=== PATIENT | female | born 1955 | race American Indian/Alaskan Native ===

== ENCOUNTER 2017-01-29 14:49 | Inpatient (IN) | payer OTHER ==
[2017-01-29 17:14] LABS: Hematocrit 35.3 % (30.3-42.9); Hemoglobin 10.8 gm/dl (10.1-14.3); Mean Corpuscular HGB Conc 31 % (30-34); Mean Corpuscular Volume 83 fl (79-97); Platelet Count 346 K/mm3 (140-440); Red Blood Count 4.23 M/mm3 (3.65-5.03); Red Cell Distribution Width 17.6 % (13.2-15.2); White Blood Count 16.3 K/mm3 (4.5-11.0)
[2017-01-29 17:19] LABS: Lipase 39 units/L (13-60)
[2017-01-29 17:24] LABS: Albumin 3.3 g/dL (3.9-5); Bilirubin,Total 2.8 mg/dL (0.1-1.2); Calcium 9.6 mg/dL (8.4-10.2); Chloride 96.3 mmol/L (98-107); Potassium 4.3 mmol/L (3.6-5.0); Total Protein 6.5 g/dL (6.3-8.2)
[2017-01-29 17:27] LABS: Mean Corpuscular Hemoglobin 26 pg (28-32)
[2017-01-29 17:46] LABS: INR 1.41 (0.87-1.13)
[2017-01-29 17:47] LABS: Partial Thromboplastin Time 33.5 Sec. (24.2-36.6)
[2017-01-29 18:22] LABS: Bilirubin,Urine NEG (Negative); Blood,Urine NEG (Negative); Ketones,Urine NEG (Negative); Leukocyte Esterase,Urine NEG (Negative); Nitrite,Urine NEG (Negative); Protein,Urine <15 mg/dL mg/dL (Negative); RBC,Urine < 1.0 /HPF (0.0-6.0); Urobilinogen,Urine < 2.0 mg/dL (<2.0)
[2017-01-29 18:40] LABS: Blastocytes % (Manual) 0 %
[2017-01-29 18:41] LABS: Anisocytosis 1+; Basophils % (Manual) 0 % (0.0-1.8); Elliptocytes 1+; Eosinophils % (Manual) 0 % (0.0-4.3); Hypochromasia 1+; Poikilocytosis 1+
[2017-01-29 18:42] LABS: Platelet Estimate Consistent w Auto; Polychromasia Few; Spherocytes Few; Target Cells Few
[2017-01-29 18:51] LABS: Diff Status Complete
[2017-01-29] MEDS ORDERED: NACL 0.9% 1000 ML 2,000 ML IV ONE (19:20)
--- NOTE | 2017-01-29 19:24 | Emergency Department Report ---
ED General Adult HPI - General Chief complaint: Abdominal Pain Stated complaint: ABDOMINAL PAIN,NOT EATING WEAK Time Seen by Provider: 01/29/17 19:08 Source: patient, family, RN notes reviewed Mode of arrival: Ambulatory Limitations: Altered Mental Status, Physical Limitation - History of Present Illness Initial comments: This is a 61-year-old female. The patient is previously unknown to this provider. She does not have a local primary care doctor. She is brought to the hospital by her family member, Mr. Titus Coronado; [phone] The patient is brought to the hospital for weakness, abdominal cramping and generalized malaise, back pain, decreased oral intake, "not acting like herself. " The symptoms have been going on for 1 month. They are intermittent. They do not have exacerbating or relieving factors. Patient admits to abdominal cramping and chest cramping. She cannot further describe this. She denies headache, neck pain, shortness of breath, urinary symptoms, diarrhea. -: Gradual Location: back, abdomen Severity scale (0 -10): 4 Consistency: intermittent Improves with: none Worsens with: none Associated Symptoms: confusion, loss of appetite, malaise, weakness - Related Data Allergies Allergy/AdvReac Type Severity Reaction Status Date / Time Penicillins Allergy Unknown Verified 01/29/17 16:11 ED Review of Systems ROS: Stated complaint: ABDOMINAL PAIN,NOT EATING WEAK Other details as noted in HPI Constitutional: fever Eyes: denies: eye discharge ENT: denies: epistaxis Respiratory: denies: cough Cardiovascular: denies: chest pain Gastrointestinal: abdominal pain Genitourinary: denies: dysuria Skin: as per HPI Neurological: weakness, confusion Psychiatric: as per HPI ED Past Medical Hx - Past Medical History Hx Hypertension: Yes Additional medical history: 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 Absent: nystagmus - ENT ENT exam: Present: normal exam, normal orophraynx, mucous membranes moist, normal external ear exam - Neck Neck exam: Present: normal inspection, full ROM. Absent: tenderness, meningismus - Respiratory Respiratory exam: Present: normal lung sounds bilaterally. Absent: respiratory distress, wheezes, rales, rhonchi, stridor, chest wall tenderness - Cardiovascular Cardiovascular Exam: Present: normal rhythm, tachycardia, normal heart sounds. Absent: systolic murmur, diastolic murmur, rubs, gallop - GI/Abdominal GI/Abdominal exam: Present: soft, organomegaly (hepatomegaly), other (left lower quadrant colostomy is noted. No redness, pus or streaking). Absent: distended, tenderness, guarding, rebound, rigid, pulsatile mass - Extremities Exam Extremities exam: Present: normal inspection, full ROM, normal capillary refill. Absent: pedal edema, calf tenderness - Back Exam Back exam: Present: normal inspection, full ROM. Absent: tenderness, CVA tenderness (R), paraspinal tenderness, vertebral tenderness - Neurological Exam Neurological exam: Present: alert (alert to name and location. Patient cannot multiply 1010.), other (Extraocular movements intact. Tongue midline. No facial droop. Facial sensation intact to light touch in the V1, V2, V3 distribution bilaterally. 5 and 5 strength in 4 extremities.. Sensation is intact to light touch in 4 extremities.). Absent: motor sensory deficit - Psychiatric Psychiatric exam: Present: normal affect, normal mood - Skin Skin exam: Present: warm, dry, intact, normal color. Absent: rash ED Course Vital Signs 01/29/17 01/29/17 01/29/17 16:01 18:21 20:19 Temperature 98.6 F 98.2 F 98.9 F Pulse Rate 101 H 97 H Respiratory 18 28 H Rate Blood Pressure 146/107 Blood Pressure 141/103 [Right] O2 Sat by Pulse 100 98 Oximetry - Reevaluation(s) Reevaluation #1: 01/29/17 20:13 Differential diagnosis, including but not limited to: Viremia, bacteremia, hepatorenal syndrome, intra-abdominal infection, pneumonia Assessment and plan: 61-year-old female with gradual cognitive and physical decline over a month as per her nephew. Rectal temperature is pending, patient tachycardic with leukocytosis, has renal insufficiency, transaminitis and lactic acidosis. The patient's PEYTON does not indicate that she is nauseous. She denied consuming alcohol to me. Patient will be treated empirically with IV fluids, multivitamin/banana bag with thiamine. Noncontrast CT scan of the brain is pending. Noncontrast CT scan of the abdomen and pelvis is pending. Given the patient's symptoms have been going on for 1 month, given that she appears to be moderately dehydrated, I think bacteremia is unlikely. However if she is found to have a fever or to be hypothermic, she will be covered with empiric antibiotics. 01/29/17 20:14 01/29/17 20:15 Reevaluation #2: 01/29/17 20:16 Elevated proBNP is appreciated, however the patient is not hypoxic, does not have crackles or rales, therefore clinically do not think the patient is in acute congestive heart failure. I believe that she will benefit from IV fluids and not from fluid restriction. Reevaluation #3: 01/29/17 21:[address] scan of the brain negative for acute findings. CT scan of the pelvis is pending. Reevaluation #4: 01/29/17 22:39 CT scan report is reviewed. Polycystic kidney disease noted, ascites noted, no obvious infectious etiology is noted. Noncontrast CT scan of the brain is negative. Given poor functional status, acute renal insufficiency, generalized weakness, ascites had a symptomatic but nontender, patient to be admitted for oncologic workup, IV fluids, and hydration. Case is presented to the Hospital physician, Dr. Hernandez, he accepts the patient to the medical service. Given persistent tachycardia, leukocytosis , elevated lactic acid level, renal insufficiency, patient will be covered empirically with Levaquin. 01/29/17 22:40 ED Medical Decision Making - Lab Data Result diagrams: 01/29/17 16:12 01/29/17 16:12 Vital Signs 01/29/17 01/29/17 16:01 18:21 Temperature 98.6 F 98.2 F Pulse Rate 101 H 97 H Respiratory 18 28 H Rate Blood Pressure 146/107 Blood Pressure 141/103 [Right] O2 Sat by Pulse 100 98 Oximetry Lab Results 01/29/17 01/29/17 01/29/17 Range/Units 16:12 16:12 16:18 WBC 16.3 H (4.5-11.0) K/mm3 RBC 4.23 (3.65-5.03) M/mm3 Hgb 10.8 (10.1-14.3) gm/dl Hct 35.3 (30.3-42.9) % MCV 83 (79-97) fl MCH 26 L (28-32) pg MCHC 31 (30-34) % RDW 17.6 H (13.2-15.2) % Plt Count 346 (140-440) K/mm3 Add Manual Diff Complete Total Counted 100 Seg Neutrophils % Senior Research Scientist Seg Neuts % (Manual) 90.0 H (40.0-70.0) % Band Neutrophils % 2.0 % Lymphocytes % (Manual) 6.0 L (13.4-35.0) % Reactive Lymphs % (Man) 0 % Monocytes % (Manual) 2.0 (0.0-7.3) % Eosinophils % (Manual) 0 (0.0-4.3) % Basophils % (Manual) 0 (0.0-1.8) % Metamyelocytes % 0 % Myelocytes % 0 % Promyelocytes % 0 % Blast Cells % 0 % Nucleated RBC % Not Reportable Seg Neutrophils # Man 14.7 H (1.8-7.7) K/mm3 Band Neutrophils # 0.3 K/mm3 Lymphocytes # (Manual) 1.0 L (1.2-5.4) K/mm3 Abs React Lymphs (Man) 0.0 K/mm3 Monocytes # (Manual) 0.3 (0.0-0.8) K/mm3 Eosinophils # (Manual) 0.0 (0.0-0.4) K/mm3 Basophils # (Manual) 0.0 (0.0-0.1) K/mm3 Metamyelocytes # 0.0 K/mm3 Myelocytes # 0.0 K/mm3 Promyelocytes # 0.0 K/mm3 Blast Cells # 0.0 K/mm3 WBC Morphology Not Reportable Hypersegmented Neuts Not Reportable Hyposegmented Neuts Not Reportable Hypogranular Neuts Not Reportable Smudge Cells Not Reportable Toxic Granulation Not Reportable Toxic Vacuolation Not Reportable Dohle Bodies Not Reportable Pelger-Huet Anomaly Not Reportable Иван Rods Not Reportable Platelet Estimate Consistent w auto Clumped Platelets Not Reportable Plt Clumps, EDTA Not Reportable Large Platelets Not Reportable Giant Platelets Not Reportable Platelet Satelliting Not Reportable Plt Morphology Comment Not Reportable RBC Morphology Not Reportable Dimorphic RBCs Not Reportable Polychromasia Few Hypochromasia 1+ Poikilocytosis 1+ Anisocytosis 1+ Microcytosis Not Reportable Macrocytosis Not Reportable Spherocytes Few Pappenheimer Bodies Not Reportable Sickle Cells Not Reportable Target Cells Few Tear Drop Cells Not Reportable Ovalocytes Not Reportable Helmet Cells Not Reportable [place] Bodies Not Reportable [place] Rings Not Reportable Matthews Cells Not Reportable Bite Cells Not Reportable Crenated Cell Not Reportable Elliptocytes 1+ Acanthocytes (Spur) Not Reportable Rouleaux Not Reportable Hemoglobin C Crystals Not Reportable Schistocytes Not Reportable Malaria parasites Not Reportable Sandro Bodies Not Reportable Hem Pathologist Commnt No PT 18.0 H (12.2-14.9) Sec. INR 1.41 H (0.87-1.13) APTT 33.5 (24.2-36.6) Sec. Sodium 137 (137-145) mmol/L Potassium 4.3 (3.6-5.0) mmol/L Chloride 96.3 L (98-107) mmol/L Carbon Dioxide 20 L (22-30) mmol/L Anion Gap 25 mmol/L BUN 24 H (7-17) mg/dL Creatinine 1.4 H (0.7-1.2) mg/dL Estimated GFR 46 ml/min BUN/Creatinine Ratio 17 % Glucose 97 (65-100) mg/dL Lactic Acid (0.7-2.0) mmol/L Calcium 9.6 (8.4-10.2) mg/dL Total Bilirubin 2.80 H (0.1-1.2) mg/dL AST 500 H (5-40) units/L ALT 158 H (7-56) units/L Alkaline Phosphatase 308 H (35-129) units/L Ammonia (25-60) umol/L NT-Pro-B Natriuret Pep (0-900) pg/mL Total Protein 6.5 (6.3-8.2) g/dL Albumin 3.3 L (3.9-5) g/dL Albumin/Globulin Ratio 1.0 % Lipase (13-60) units/L Urine Color (Yellow) Urine Turbidity (Clear) Urine pH (5.0-7.0) Ur Specific [employer] (1.003-1.030) Urine Protein (Negative) mg/dL Urine Glucose (UA) (Negative) mg/dL Urine Ketones (Negative) mg/dL Urine Blood (Negative) Urine Nitrite (Negative) Urine Bilirubin (Negative) Urine Urobilinogen (<2.0) mg/dL Ur Leukocyte Esterase (Negative) Urine WBC (Auto) (0.0-6.0) /HPF Urine RBC (Auto) (0.0-6.0) /HPF Blood Type Antibody Screen 01/29/17 01/29/17 01/29/17 Range/Units 16:19 16:35 16:45 WBC (4.5-11.0) K/mm3 RBC (3.65-5.03) M/mm3 Hgb (10.1-14.3) gm/dl Hct (30.3-42.9) % MCV (79-97) fl MCH (28-32) pg MCHC (30-34) % RDW (13.2-15.2) % Plt Count (140-440) K/mm3 Add Manual Diff Total Counted Seg Neutrophils % Seg Neuts % (Manual) (40.0-70.0) % Band Neutrophils % % Lymphocytes % (Manual) (13.4-35.0) % Reactive Lymphs % (Man) % Monocytes % (Manual) (0.0-7.3) % Eosinophils % (Manual) (0.0-4.3) % Basophils % (Manual) (0.0-1.8) % Metamyelocytes % % Myelocytes % % Promyelocytes % % Blast Cells % % Nucleated RBC % Seg Neutrophils # Man (1.8-7.7) K/mm3 Band Neutrophils # K/mm3 Lymphocytes # (Manual) (1.2-5.4) K/mm3 Abs React Lymphs (Man) K/mm3 Monocytes # (Manual) (0.0-0.8) K/mm3 Eosinophils # (Manual) (0.0-0.4) K/mm3 Basophils # (Manual) (0.0-0.1) K/mm3 Metamyelocytes # K/mm3 Myelocytes # K/mm3 Promyelocytes # K/mm3 Blast Cells # K/mm3 WBC Morphology Hypersegmented Neuts Hyposegmented Neuts Hypogranular Neuts Smudge Cells Toxic Granulation Toxic Vacuolation Dohle Bodies Pelger-Huet Anomaly Иван Rods Platelet Estimate Clumped Platelets Plt Clumps, EDTA Large Platelets Giant Platelets Platelet Satelliting Plt Morphology Comment RBC Morphology Dimorphic RBCs Polychromasia Hypochromasia Poikilocytosis Anisocytosis Microcytosis Macrocytosis Spherocytes Pappenheimer Bodies Sickle Cells Target Cells Tear Drop Cells Ovalocytes Helmet Cells [place] Bodies [place] Rings Matthews Cells Bite Cells Crenated Cell Elliptocytes Acanthocytes (Spur) Rouleaux Hemoglobin C Crystals Schistocytes Malaria parasites Sandro Bodies Hem Pathologist Commnt PT (12.2-14.9) Sec. INR (0.87-1.13) APTT (24.2-36.6) Sec. Sodium (137-145) mmol/L Potassium (3.6-5.0) mmol/L Chloride (98-107) mmol/L Carbon Dioxide (22-30) mmol/L Anion Gap mmol/L BUN (7-17) mg/dL Creatinine (0.7-1.2) mg/dL Estimated GFR ml/min BUN/Creatinine Ratio % Glucose (65-100) mg/dL Lactic Acid 3.10 H* (0.7-2.0) mmol/L Calcium (8.4-10.2) mg/dL Total Bilirubin (0.1-1.2) mg/dL AST (5-40) units/L ALT (7-56) units/L Alkaline Phosphatase (35-129) units/L Ammonia (25-60) umol/L NT-Pro-B Natriuret Pep 1747 H (0-900) pg/mL Total Protein (6.3-8.2) g/dL Albumin (3.9-5) g/dL Albumin/Globulin Ratio % Lipase 39 (13-60) units/L Urine Color (Yellow) Urine Turbidity (Clear) Urine pH (5.0-7.0) Ur Specific [employer] (1.003-1.030) Urine Protein (Negative) mg/dL Urine Glucose (UA) (Negative) mg/dL Urine Ketones (Negative) mg/dL Urine Blood (Negative) Urine Nitrite (Negative) Urine Bilirubin (Negative) Urine Urobilinogen (<2.0) mg/dL Ur Leukocyte Esterase (Negative) Urine WBC (Auto) (0.0-6.0) /HPF Urine RBC (Auto) (0.0-6.0) /HPF Blood Type B POSITIVE Antibody Screen Negative 01/29/17 01/29/17 01/29/17 Range/Units 16:45 17:44 19:28 WBC (4.5-11.0) K/mm3 RBC (3.65-5.03) M/mm3 Hgb (10.1-14.3) gm/dl Hct (30.3-42.9) % MCV (79-97) fl MCH (28-32) pg MCHC (30-34) % RDW (13.2-15.2) % Plt Count (140-440) K/mm3 Add Manual Diff Total Counted Seg Neutrophils % Seg Neuts % (Manual) (40.0-70.0) % Band Neutrophils % % Lymphocytes % (Manual) (13.4-35.0) % Reactive Lymphs % (Man) % Monocytes % (Manual) (0.0-7.3) % Eosinophils % (Manual) (0.0-4.3) % Basophils % (Manual) (0.0-1.8) % Metamyelocytes % % Myelocytes % % Promyelocytes % % Blast Cells % % Nucleated RBC % Seg Neutrophils # Man (1.8-7.7) K/mm3 Band Neutrophils # K/mm3 Lymphocytes # (Manual) (1.2-5.4) K/mm3 Abs React Lymphs (Man) K/mm3 Monocytes # (Manual) (0.0-0.8) K/mm3 Eosinophils # (Manual) (0.0-0.4) K/mm3 Basophils # (Manual) (0.0-0.1) K/mm3 Metamyelocytes # K/mm3 Myelocytes # K/mm3 Promyelocytes # K/mm3 Blast Cells # K/mm3 WBC Morphology Hypersegmented Neuts Hyposegmented Neuts Hypogranular Neuts Smudge Cells Toxic Granulation Toxic Vacuolation Dohle Bodies Pelger-Huet Anomaly Иван Rods Platelet Estimate Clumped Platelets Plt Clumps, EDTA Large Platelets Giant Platelets Platelet Satelliting Plt Morphology Comment RBC Morphology Dimorphic RBCs Polychromasia Hypochromasia Poikilocytosis Anisocytosis Microcytosis Macrocytosis Spherocytes Pappenheimer Bodies Sickle Cells Target Cells Tear Drop Cells Ovalocytes Helmet Cells [place] Bodies [place] Rings Matthews Cells Bite Cells Crenated Cell Elliptocytes Acanthocytes (Spur) Rouleaux Hemoglobin C Crystals Schistocytes Malaria parasites Sandro Bodies Hem Pathologist Commnt PT (12.2-14.9) Sec. INR (0.87-1.13) APTT (24.2-36.6) Sec. Sodium (137-145) mmol/L Potassium (3.6-5.0) mmol/L Chloride (98-107) mmol/L Carbon Dioxide (22-30) mmol/L Anion Gap mmol/L BUN (7-17) mg/dL Creatinine (0.7-1.2) mg/dL Estimated GFR ml/min BUN/Creatinine Ratio % Glucose (65-100) mg/dL Lactic Acid (0.7-2.0) mmol/L Calcium (8.4-10.2) mg/dL Total Bilirubin (0.1-1.2) mg/dL AST (5-40) units/L ALT (7-56) units/L Alkaline Phosphatase (35-129) units/L Ammonia 53.0 46.0 (25-60) umol/L NT-Pro-B Natriuret Pep (0-900) pg/mL Total Protein (6.3-8.2) g/dL Albumin (3.9-5) g/dL Albumin/Globulin Ratio % Lipase (13-60) units/L Urine Color Yellow (Yellow) Urine Turbidity Clear (Clear) Urine pH 5.0 (5.0-7.0) Ur Specific [employer] 1.009 (1.003-1.030) Urine Protein <15 mg/dl (Negative) mg/dL Urine Glucose (UA) Neg (Negative) mg/dL Urine Ketones Neg (Negative) mg/dL Urine Blood Neg (Negative) Urine Nitrite Neg (Negative) Urine Bilirubin Neg (Negative) Urine Urobilinogen < 2.0 (<2.0) mg/dL Ur Leukocyte Esterase Neg (Negative) Urine WBC (Auto) 0.0 (0.0-6.0) /HPF Urine RBC (Auto) < 1.0 (0.0-6.0) /HPF Blood Type Antibody Screen 01/29/17 Range/Units 19:28 WBC (4.5-11.0) K/mm3 RBC (3.65-5.03) M/mm3 Hgb (10.1-14.3) gm/dl Hct (30.3-42.9) % MCV (79-97) fl MCH (28-32) pg MCHC (30-34) % RDW (13.2-15.2) % Plt Count (140-440) K/mm3 Add Manual Diff Total Counted Seg Neutrophils % Seg Neuts % (Manual) (40.0-70.0) % Band Neutrophils % % Lymphocytes % (Manual) (13.4-35.0) % Reactive Lymphs % (Man) % Monocytes % (Manual) (0.0-7.3) % Eosinophils % (Manual) (0.0-4.3) % Basophils % (Manual) (0.0-1.8) % Metamyelocytes % % Myelocytes % % Promyelocytes % % Blast Cells % % Nucleated RBC % Seg Neutrophils # Man (1.8-7.7) K/mm3 Band Neutrophils # K/mm3 Lymphocytes # (Manual) (1.2-5.4) K/mm3 Abs React Lymphs (Man) K/mm3 Monocytes # (Manual) (0.0-0.8) K/mm3 Eosinophils # (Manual) (0.0-0.4) K/mm3 Basophils # (Manual) (0.0-0.1) K/mm3 Metamyelocytes # K/mm3 Myelocytes # K/mm3 Promyelocytes # K/mm3 Blast Cells # K/mm3 WBC Morphology Hypersegmented Neuts Hyposegmented Neuts Hypogranular Neuts Smudge Cells Toxic Granulation Toxic Vacuolation Dohle Bodies Pelger-Huet Anomaly Иван Rods Platelet Estimate Clumped Platelets Plt Clumps, EDTA Large Platelets Giant Platelets Platelet Satelliting Plt Morphology Comment RBC Morphology Dimorphic RBCs Polychromasia Hypochromasia Poikilocytosis Anisocytosis Microcytosis Macrocytosis Spherocytes Pappenheimer Bodies Sickle Cells Target Cells Tear Drop Cells Ovalocytes Helmet Cells [place] Bodies [place] Rings Matthews Cells Bite Cells Crenated Cell Elliptocytes Acanthocytes (Spur) Rouleaux Hemoglobin C Crystals Schistocytes Malaria parasites Sandro Bodies Hem Pathologist Commnt PT (12.2-14.9) Sec. INR (0.87-1.13) APTT (24.2-36.6) Sec. Sodium (137-145) mmol/L Potassium (3.6-5.0) mmol/L Chloride (98-107) mmol/L Carbon Dioxide (22-30) mmol/L Anion Gap mmol/L BUN (7-17) mg/dL Creatinine (0.7-1.2) mg/dL Estimated GFR ml/min BUN/Creatinine Ratio % Glucose (65-100) mg/dL Lactic Acid 3.60 H* (0.7-2.0) mmol/L Calcium (8.4-10.2) mg/dL Total Bilirubin (0.1-1.2) mg/dL AST (5-40) units/L ALT (7-56) units/L Alkaline Phosphatase (35-129) units/L Ammonia (25-60) umol/L NT-Pro-B Natriuret Pep (0-900) pg/mL Total Protein (6.3-8.2) g/dL Albumin (3.9-5) g/dL Albumin/Globulin Ratio % Lipase (13-60) units/L Urine Color (Yellow) Urine Turbidity (Clear) Urine pH (5.0-7.0) Ur Specific [employer] (1.003-1.030) Urine Protein (Negative) mg/dL Urine Glucose (UA) (Negative) mg/dL Urine Ketones (Negative) mg/dL Urine Blood (Negative) Urine Nitrite (Negative) Urine Bilirubin (Negative) Urine Urobilinogen (<2.0) mg/dL Ur Leukocyte Esterase (Negative) Urine WBC (Auto) (0.0-6.0) /HPF Urine RBC (Auto) (0.0-6.0) /HPF Blood Type Antibody Screen - EKG Data -: EKG Interpreted by Me EKG shows normal: sinus rhythm - EKG Data 01/29/17 20:15 Sinus tachycardia, 101 bpm, high left ventricular voltage, QTC prolonged, abnormal EKG, not morphologically consistent with STEMI - Radiology Data Radiology results: pending, report reviewed, image reviewed Critical care attestation.: If time is entered above; I have spent that time in minutes in the direct care of this critically ill patient, excluding procedure time. ED Disposition Clinical Impression: SIRS (systemic inflammatory response syndrome), Renal insufficiency, Transaminitis Disposition: -09 OP ADMIT IP TO THIS HOSP Is pt being admited?: Yes Condition: Good
[2017-01-29] MEDS ORDERED: VITAMIN B-1 100 MG, FOLVITE 1 MG, INFUVITE 10 ML in NACL 0.9% 1000 ML 1,000 ML IV ONE (21:15)
--- NOTE | 2017-01-29 21:42 | Cat Scan Report ---
FINAL REPORT EXAM: CT HEAD/BRAIN WO CON HISTORY: ams TECHNIQUE: CT head without contrast PRIORS: None. FINDINGS: There is focal remote lacunar infarct right caudate head. No acute intra or extra-axial hemorrhage identified. No evidence for midline shift or mass effect. Ventricles and sulci are within normal limits. No acute parenchymal abnormalities are identified. There is patchy hypodensity within the supratentorial white matter consistent with chronic small vessel ischemic change. IMPRESSION: Chronic ischemic changes No acute abnormality identified.
--- NOTE | 2017-01-29 22:22 | Cat Scan Report ---
FINAL REPORT PROCEDURE: CT ABDOMEN PELVIS WO CON TECHNIQUE: Computerized axial tomography of the abdomen and pelvis was performed without intravenous contrast. This study is performed without intravascular contrast material and its sensitivity for abdominal and pelvic pathology, including neoplasms, inflammation, abscess, free fluid, thrombosis, arterial dissection and infarction, is reduced compared with a contrast enhanced study. HISTORY: abd pain COMPARISON: No prior studies are available for comparison. FINDINGS: Lower Lung quinteros: Small to moderate right pleural effusion present with mild adjacent atelectasis. Minimal left pleural effusion is present. Upper Abdomen: There are too numerous to count cystic lesions visualized throughout the liver and both kidneys. There also several calcifications seen in the kidneys. No hydronephrosis is visualized. There are nonspecific small hyperdense nodules visualized in both kidneys as well. The cystic changes in the liver measure up to 4.9 centimeters greatest diameter. In addition to the cystic areas there are numerous intermediate dense oval and round nodules scattered throughout the right and left lobes of the liver measuring up to 3.2 centimeters. In addition to cysts I cannot exclude numerous intermediate dense masses scattered throughout the liver. There is moderate amount of ascites present throughout the abdomen and pelvis. The adrenal glands do not appear to be enlarged. The spleen is unremarkable. The pancreas showed no focal abnormality. Retroperitoneum: Atherosclerotic changes are seen in the abdominal aorta. No aneurysm is visualized. Nonspecific subcentimeter lymph nodes are seen in the retroperitoneum. No pathologically enlarged lymph nodes are identified. Bowel: No evidence of bowel obstruction or free intraperitoneal gas. There is an ostomy visualized in the left upper quadrant. Loop of bowel, adipose tissue and fluid are herniated into the ostomy site. I do not see changes to suggest bowel obstruction. Reproductive organs: Uterus and adnexa are unremarkable. There is mild thoracolumbar scoliosis present convex to the right. No acute bony abnormalities are seen. IMPRESSION: There is evidence of polycystic kidney disease with additional hepatic involvement. In addition to cystic changes seen in the liver there appear to be numerous intermediate dense nodules present within the liver parenchyma. I cannot exclude metastatic disease within the liver. Multiple nonobstructing renal calculi are visualized. There are also hyperdense cysts or nodules present within the kidneys. These are nonspecific. These may represent hemorrhagic cyst. I cannot exclude solid nodules.. There is an ostomy visualized in the left upper quadrant containing a portion of a loop of bowel, some adipose tissue and ascites. Small to moderate size right pleural effusion, minimal left effusion and moderate ascites is visualized.
[2017-01-29] MEDS ORDERED: LEVAQUIN 750MG/150ML 750 MG/150 ML BAG IV ONE (22:39)
--- NOTE | 2017-01-29 23:15 | History and Physical Report ---
History of Present Illness Date of examination: 01/29/17 Chief complaint: Decreased oral intake History of present illness: 61-year-old -Ind[place] female with past medical history significant for hypertension, polycystic kidney disease, dementia, liver disease, renal failure , status post colostomy was brought by her niece for complaints of not eating and drinking well, back pain, no specific abdominal pain that has been going on for the last 1 month. Patient is poor historian due to dementia. But she said her abdomen hurting. Colostomy was done a year ago and her niece believes is due to some distal obstruction. Patient has been heavy drinker years ago but sober for the last few years. Patient didn't follow-up with PCP. REVIEW OF SYSTEMS: GENERAL: no weight change, no fatigue, no fever HEAD: no head ache EYES: no blurry vision, no acute visual loss EARS: no hearing loss, no discharge, no earache NOSE: no stuffiness, no sneezing, no discharge MOUTH, THROAT AND NECK: no bleeding gums, no sore throat, no swollen neck CARDIAC: no palpitations, no dyspnea on exertion, no orthopnea, no PND, no edema , no chest pain RESPIRATORY: no shortness of breath, no wheeze, no cough, no sputum, no hemoptysis, no asthma GI: + decreased appetite, no nausea, no vomiting, no dysphagia, no diarrhea, no constipation, + abdominal pain URINARY: no change in frequency, no urgency, no polyuria, no hematuria, no incontinence MUSCULOSKELETAL: no muscle weakness, no pain, no joint stiffness NEUROLOGIC: no loss of sensation/numbness, no tingling, no tremors, no weakness/ paralysis HEMATOLOGIC: no anemia, no easy bruising SKIN: no rashes ENDOCRINE: no heat/cold intolerance, no polyuria, no polydipsia, no thyroid problems, no diabetes PSYCHIATRIC: no anxiety, no depression, no suicidal ideations Past History Past Medical History: hypertension, renal failure, other (polycystic kidney disease, dementia) Past Surgical History: bowel surgery Social history: full code. denies: smoking, alcohol abuse (quit drinking for the last few years, but was heavy drinker previously), prescription drug abuse, IV drug use Family history: no significant family history Medications and Allergies Allergies Allergy/AdvReac Type Severity Reaction Status Date / Time Penicillins Allergy Unknown Verified 01/29/17 16:11 Active Meds: Active Medications Thiamine HCl 100 mg/ Folic Acid 1 mg/ Multivitamins/Minerals 10 ml/ Sodium Chloride 1,011.2 mls @ 250 mls/hr IV ONCE.ED ONE Stop: 01/30/17 01:17 Last Admin: 01/29/17 21:21 Dose: 250 mls/hr Levofloxacin/Dextrose (Levaquin 750mg/150ml) 750 mg in 150 mls @ 100 mls/hr IV ONCE ONE Stop: 01/30/17 00:08 Last Admin: 01/29/17 22:53 Dose: 100 mls/hr Exam - Physical Exam Narrative exam: Not in cardiopulmonary distress. The patient appeared well nourished and normally developed. Vital signs as documented. Head exam is unremarkable. No scleral icterus . Neck is without jugular venous distension, thyromegaly, or carotid bruits. Lungs are clear to auscultation. Cardiac exam reveals regular rate and Rhythm. First and second heart sounds normal. No murmurs, rubs or gallops. Abdominal significant for colostomy. Extremities are nonedematous and both femoral and pedal pulses are normal. 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 No focal weakness. - Constitutional Vitals: Temp Pulse Resp BP Pulse Ox 98.9 F 97 H 28 H 141/103 98 01/29/17 20:19 01/29/17 18:21 01/29/17 18:21 01/29/17 18:21 01/29/17 18:21 Results - Labs CBC & Chem 7: 01/29/17 16:12 01/29/17 16:12 Labs: Laboratory Last Values WBC 16.3 K/mm3 (4.5-11.0) H 01/29/17 16:12 RBC 4.23 M/mm3 (3.65-5.03) 01/29/17 16:12 Hgb 10.8 gm/dl (10.1-14.3) 01/29/17 16:12 Hct 35.3 % (30.3-42.9) 01/29/17 16:12 MCV 83 fl (79-97) 01/29/17 16:12 MCH 26 pg (28-32) L 01/29/17 16:12 MCHC 31 % (30-34) 01/29/17 16:12 RDW 17.6 % (13.2-15.2) H 01/29/17 16:12 Plt Count 346 K/mm3 (140-440) 01/29/17 16:12 Add Manual Diff Complete 01/29/17 16:12 Total Counted 100 01/29/17 16:12 Seg Neutrophils % Equipment Mechanic 01/29/17 16:12 Seg Neuts % (Manual) 90.0 % (40.0-70.0) H 01/29/17 16:12 Band Neutrophils % 2.0 % 01/29/17 16:12 Lymphocytes % (Manual) 6.0 % (13.4-35.0) L 01/29/17 16:12 Reactive Lymphs % (Man) 0 % 01/29/17 16:12 Monocytes % (Manual) 2.0 % (0.0-7.3) 01/29/17 16:12 Eosinophils % (Manual) 0 % (0.0-4.3) 01/29/17 16:12 Basophils % (Manual) 0 % (0.0-1.8) 01/29/17 16:12 Metamyelocytes % 0 % 01/29/17 16:12 Myelocytes % 0 % 01/29/17 16:12 Promyelocytes % 0 % 01/29/17 16:12 Blast Cells % 0 % 01/29/17 16:12 Nucleated RBC % Not Reportable 01/29/17 16:12 Seg Neutrophils # Man 14.7 K/mm3 (1.8-7.7) H 01/29/17 16:12 Band Neutrophils # 0.3 K/mm3 01/29/17 16:12 Lymphocytes # (Manual) 1.0 K/mm3 (1.2-5.4) L 01/29/17 16:12 Abs React Lymphs (Man) 0.0 K/mm3 01/29/17 16:12 Monocytes # (Manual) 0.3 K/mm3 (0.0-0.8) 01/29/17 16:12 Eosinophils # (Manual) 0.0 K/mm3 (0.0-0.4) 01/29/17 16:12 Basophils # (Manual) 0.0 K/mm3 (0.0-0.1) 01/29/17 16:12 Metamyelocytes # 0.0 K/mm3 01/29/17 16:12 Myelocytes # 0.0 K/mm3 01/29/17 16:12 Promyelocytes # 0.0 K/mm3 01/29/17 16:12 Blast Cells # 0.0 K/mm3 01/29/17 16:12 WBC Morphology Not Reportable 01/29/17 16:12 Hypersegmented Neuts Not Reportable 01/29/17 16:12 Hyposegmented Neuts Not Reportable 01/29/17 16:12 Hypogranular Neuts Not Reportable 01/29/17 16:12 Smudge Cells Not Reportable 01/29/17 16:12 Toxic Granulation Not Reportable 01/29/17 16:12 Toxic Vacuolation Not Reportable 01/29/17 16:12 Dohle Bodies Not Reportable 01/29/17 16:12 Pelger-Huet Anomaly Not Reportable 01/29/17 16:12 Иван Rods Not Reportable 01/29/17 16:12 Platelet Estimate Consistent w auto 01/29/17 16:12 Clumped Platelets Not Reportable 01/29/17 16:12 Plt Clumps, EDTA Not Reportable 01/29/17 16:12 Large Platelets Not Reportable 01/29/17 16:12 Giant Platelets Not Reportable 01/29/17 16:12 Platelet Satelliting Not Reportable 01/29/17 16:12 Plt Morphology Comment Not Reportable 01/29/17 16:12 RBC Morphology Not Reportable 01/29/17 16:12 Dimorphic RBCs Not Reportable 01/29/17 16:12 Polychromasia Few 01/29/17 16:12 Hypochromasia 1+ 01/29/17 16:12 Poikilocytosis 1+ 01/29/17 16:12 Anisocytosis 1+ 01/29/17 16:12 Microcytosis Not Reportable 01/29/17 16:12 Macrocytosis Not Reportable 01/29/17 16:12 Spherocytes Few 01/29/17 16:12 Pappenheimer Bodies Not Reportable 01/29/17 16:12 Sickle Cells Not Reportable 01/29/17 16:12 Target Cells Few 01/29/17 16:12 Tear Drop Cells Not Reportable 01/29/17 16:12 Ovalocytes Not Reportable 01/29/17 16:12 Helmet Cells Not Reportable 01/29/17 16:12 Traylor-Jeff Bodies Not Reportable 01/29/17 16:12 [place] Rings Not Reportable 01/29/17 16:12 Herlong Cells Not Reportable 01/29/17 16:12 Bite Cells Not Reportable 01/29/17 16:12 Crenated Cell Not Reportable 01/29/17 16:12 Elliptocytes 1+ 01/29/17 16:12 Acanthocytes (Spur) Not Reportable 01/29/17 16:12 Rouleaux Not Reportable 01/29/17 16:12 Hemoglobin C Crystals Not Reportable 01/29/17 16:12 Schistocytes Not Reportable 01/29/17 16:12 Malaria parasites Not Reportable 01/29/17 16:12 Sandro Bodies Not Reportable 01/29/17 16:12 Hem Pathologist Commnt No 01/29/17 16:12 PT 18.0 Sec. (12.2-14.9) H 01/29/17 16:18 INR 1.41 (0.87-1.13) H 01/29/17 16:18 APTT 33.5 Sec. (24.2-36.6) 01/29/17 16:18 Sodium 137 mmol/L (137-145) 01/29/17 16:12 Potassium 4.3 mmol/L (3.6-5.0) 01/29/17 16:12 Chloride 96.3 mmol/L (98-107) L 01/29/17 16:12 Carbon Dioxide 20 mmol/L (22-30) L 01/29/17 16:12 Anion Gap 25 mmol/L 01/29/17 16:12 BUN 24 mg/dL (7-17) H 01/29/17 16:12 Creatinine 1.4 mg/dL (0.7-1.2) H 01/29/17 16:12 Estimated GFR 46 ml/min 01/29/17 16:12 BUN/Creatinine Ratio 17 % 01/29/17 16:12 Glucose 97 mg/dL (65-100) 01/29/17 16:12 Lactic Acid 3.60 mmol/L (0.7-2.0) H* 01/29/17 19:28 Calcium 9.6 mg/dL (8.4-10.2) 01/29/17 16:12 Magnesium 2.00 mg/dL (1.7-2.3) 01/29/17 20:24 Total Bilirubin 2.80 mg/dL (0.1-1.2) H 01/29/17 16:12 AST 500 units/L (5-40) H 01/29/17 16:12 ALT 158 units/L (7-56) H 01/29/17 16:12 Alkaline Phosphatase 308 units/L (35-129) H 01/29/17 16:12 Ammonia 46.0 umol/L (25-60) 01/29/17 19:28 NT-Pro-B Natriuret Pep 1747 pg/mL (0-900) H 01/29/17 16:19 Total Protein 6.5 g/dL (6.3-8.2) 01/29/17 16:12 Albumin 3.3 g/dL (3.9-5) L 01/29/17 16:12 Albumin/Globulin Ratio 1.0 % 01/29/17 16:12 Lipase 39 units/L (13-60) 01/29/17 16:19 Urine Color Yellow (Yellow) 01/29/17 17:44 Urine Turbidity Clear (Clear) 01/29/17 17:44 Urine pH 5.0 (5.0-7.0) 01/29/17 17:44 Ur Specific [place] 1.009 (1.003-1.030) 01/29/17 17:44 Urine Protein <15 mg/dl mg/dL (Negative) 01/29/17 17:44 Urine Glucose (UA) Neg mg/dL (Negative) 01/29/17 17:44 Urine Ketones Neg mg/dL (Negative) 01/29/17 17:44 Urine Blood Neg (Negative) 01/29/17 17:44 Urine Nitrite Neg (Negative) 01/29/17 17:44 Urine Bilirubin Neg (Negative) 01/29/17 17:44 Urine Urobilinogen < 2.0 mg/dL (<2.0) 01/29/17 17:44 Ur Leukocyte Esterase Neg (Negative) 01/29/17 17:44 Urine WBC (Auto) 0.0 /HPF (0.0-6.0) 01/29/17 17:44 Urine RBC (Auto) < 1.0 /HPF (0.0-6.0) 01/29/17 17:44 Blood Type B POSITIVE 01/29/17 16:35 Antibody Screen Negative 01/29/17 16:35 - Imaging and Cardiology CT scan - abdomen: image reviewed (metastatic liver cancer, polycystic kidney disease) Assessment and Plan Assessment and plan: Sepsis likely due to infected cysts - Patient is on IV fluids, IV antibiotic Metastatic liver cancer - Oncology consult placed Polycystic kidney disease - Nephrology consulted Transaminitis - Likely from liver disease DVT prophylaxis - Heparin Disposition - Admit to medical floor. Advance Directives: Yes VTE prophylaxis?: Chemical Plan of care discussed with patient/family: Yes
--- NOTE | 2017-01-30 07:24 | Consultation ---
History of Present Illness - Reason for Consult Consult date: 01/30/17 acute renal failure, chronic renal failure - History of Present Illness The patient is a 61-year-old AAF with medical history significant for Hypertension, Polycystic kidney disease, Dementia, Liver disease, CKD, status post colostomy was brought to the ED by her niece for complaints of not eating and drinking well, back pain, abdominal pain atleast for the past month. Patient is poor historian due to dementia. Patient c/o diffuse abdominal pain. Colostomy was done a year ago and her niece believes is due to some distal obstruction. Patient has been heavy drinker years ago but sober for the last few years. She smokes about 1/2 pack of cigarettes a day. Patient is not followed by any physician at present. Her creatinine was 1.4 on admission. Past History Past Medical History: hypertension, renal failure, other (polycystic kidney disease, dementia) Past Surgical History: bowel surgery Social history: full code. denies: smoking, alcohol abuse (quit drinking for the last few years, but was heavy drinker previously), prescription drug abuse, IV drug use Family history: no significant family history Medications and Allergies Allergies Allergy/AdvReac Type Severity Reaction Status Date / Time Penicillins Allergy Unknown Verified 01/29/17 16:11 Active Meds: Active Medications Heparin Sodium (Porcine) (Heparin) 5,000 unit SUB-Q Q12HR CORA Hydromorphone HCl (Dilaudid) 0.5 mg IV Q3H PRN PRN Reason: Pain , Severe (7-10) Levofloxacin/Dextrose (Levaquin 750mg/150ml) 750 mg in 150 mls @ 100 mls/hr IV Q48HR CORA PRN Reason: Protocol Sodium Chloride (Nacl 0.9% 1000 Ml) 1,000 mls @ 50 mls/hr IV DIRECT CORA Review of Systems ROS unobtainable: due to mental status Exam - Vital Signs Vital signs: Vital Signs Temp Pulse Resp BP Pulse Ox 98.6 F 101 H 18 146/107 100 01/29/17 16:01 01/29/17 16:01 01/29/17 16:01 01/29/17 16:01 01/29/17 16:01 - General Appearance General appearance: well-developed, appears stated age, other (thin built, mild discomfort due to pain) EENT: ATNC, PERRL, mucous membranes dry, hearing intact Neck: Present: neck supple, trachea midline Respiratory: Clear to Ascultation Heart: regular, S1S2, no murmurs Gastrointestinal: Present: tenderness (diffuse), distended, masses (multiple areas), other (ostomy noted) Integumentary: no rash, warm and dry Neurologic: no focal deficit, no asterixis Musculoskeletal: Present: other (no extremity edema) Psychiatric: cooperative Results - Lab Results 01/30/17 07:46 01/29/17 16:12 Most recent lab results Calcium 9.6 mg/dL (8.4-10.2) 01/29/17 16:12 Magnesium 2.00 mg/dL (1.7-2.3) 01/29/17 20:24 - Image Kidney/bladder ultrasound: report reviewed Assessment and Plan 1. Acute kidney injury: ANGELLA superimposed on CKD in the setting of volume depletion. UA is bland. Continue IV fluids. Monitor renal function. 2. Polycystic kidney disease. 3. Liver masses. 4. Sepsis. 5. Elevated Liver enzymes. 6. Anemia.
[2017-01-30 08:10] LABS: Hematocrit 29.3 % (30.3-42.9); Hemoglobin 9.1 gm/dl (10.1-14.3); Mean Corpuscular HGB Conc 31 % (30-34); Mean Corpuscular Hemoglobin 26 pg (28-32); Mean Corpuscular Volume 84 fl (79-97); Platelet Count 263 K/mm3 (140-440); Red Blood Count 3.49 M/mm3 (3.65-5.03); Red Cell Distribution Width 17.6 % (13.2-15.2)
[2017-01-30 08:27] LABS: Albumin 2.6 g/dL (3.9-5); Albumin/Globulin Ratio 0.9 %; Bilirubin,Total 3.4 mg/dL (0.1-1.2); Calcium 8.5 mg/dL (8.4-10.2); Chloride 99.2 mmol/L (98-107); Potassium 4.2 mmol/L (3.6-5.0); Total Protein 5.5 g/dL (6.3-8.2)
--- NOTE | 2017-01-30 10:58 | XRay Report ---
AP CHEST: HISTORY: Weakness, sepsis AP view of the chest demonstrates a normal mediastinal and cardiac contour with clear lungs and normal bony and soft tissue structures. IMPRESSION: Unremarkable AP chest.
[2017-01-30] MEDS: NACL 0.9% 1000 ML 1,000 ML IV SCH (11:22)
[2017-01-30] MEDS: HEPARIN SUB-Q SCH ×2 (12:40→22:46)
[2017-01-30] MEDS: APRESOLINE IV PRN (12:41)
[2017-01-30] MEDS: NORVASC PO SCH (12:42)
--- NOTE | 2017-01-30 13:59 | Event Note ---
<PEGTONSALVADOR - Last Filed: 01/30/17 14:34> Date: 01/30/17 Patient is a 61-year-old -[place] female with past medical history significant for hypertension, polycystic kidney disease, dementia, liver disease , renal failure, status post colostomy. Patient was brought in to ER by her niece for complaints of not eating and drinking well, back pain, non-specific abdominal pain that has been going on for the last 1 month. Patient is poor historian due to dementia and lethargy. Patient has been a heavy drinker for years but sober for the last few years. Patient seen and evaluated today, appeared malnourished with dry mucous membranes. Is awake and responsive but noted with periods of confusion and lethargy but no apparent distress. Jaundice to sclera bilaterally. Pupils equal and reactive to light and accommodations. Neck is without jugular distension and adenopathy. Lungs clear to auscultation bilaterally. Noted with normal heart sound, regular with S1 S2, +2 pulses throughout. No edema noted to extremities. Abdomen noted with significant ascites, tenderness and multiple areas of masses, hypoactive bowel sounds throughout. Colostomy to left lower quadrant, in which clean and intact. Skin warm, dry and intact. Patient plan of care includes continuing with IV Fluids @ 50ml/hr, Started on Clear Liquid Diet, Nutrition consult for further evaluation of malnutrition. GI Consulted for evaluation of Cirrhosis and abdominal ascites, also ordered for paracenthesis for therapeutic and diagnostic treatment, Sc heparin placed on hold for diagnostic procedure. Lactulose for amonia levels and altered mental status. Patient also restarted on antihypertensive medications. Follow- up labs: CBC, CMP, Amonia Levels. Nephrology will continue to follow-up. Patient has been seen in conjunction with Dr Person who agree with treatment regimen and current plan of care. o <YOVNAA PERSON - Last Filed: 01/30/17 16:08> I saw and evaluated the patient. I agree with the findings and the plan of care as documented in the Nurse Practitioner's~note, with the following corrections and additions.
[2017-01-30 14:00] LABS: Basophils % (Manual) 0 % (0.0-1.8); Blastocytes % (Manual) 0 %; Eosinophils % (Manual) 0 % (0.0-4.3)
[2017-01-30 14:01] LABS: Anisocytosis 1+; Burr Cells Few; Macrocytosis Few; Poikilocytosis Few
[2017-01-30 14:02] LABS: Diff Status Complete; Platelet Estimate Consistent w Auto
[2017-01-30] MEDS: CEPHULAC PO SCH (14:44)
--- NOTE | 2017-01-30 15:37 | Progress Note ---
<SALVADOR HILL - Last Filed: 01/30/17 15:55> Assessment and Plan Assessment and plan: Assessment: Patient seen and evaluated today, appeared malnourished with dry mucous membranes. Is awake and responsive but noted with periods of confusion and lethargy but no apparent distress. Jaundice to sclera bilaterally. Pupils equal and reactive to light and accommodations. Neck is without jugular distension and adenopathy. Lungs clear to auscultation bilaterally. Noted with normal heart sound, regular with S1 S2, +2 pulses throughout. No edema noted to extremities. Abdomen noted with significant ascites, tenderness and multiple areas of masses, hypoactive bowel sounds throughout. Colostomy to left lower quadrant, in which clean and intact. Skin warm, dry and intact. Plan: Nutrition: Continuing with IV Fluids @ 50ml/hr Start on Clear Liquid Diet Nutrition consult for further evaluation of malnutrition. GI: Cirrhosis with Ascites: GI Consulted for evaluation of Cirrhosis and abdominal ascites Lactulose for amonia levels and altered mental status. Therapeutic paracenthesis for therapeutic and diagnostic treatment Sc heparin placed on hold for diagnostic procedure Follow Labs: CBC, CMP, Amonia Levels Hypertension: Restart antihypertensive medication Amlodipine and IV Hydralazine PRN. Polycystic Kidney Disease: Nephrology will continue to follow-up. IV Fluids Monitor Kidney Patient has been seen in conjunction with Dr Person who agree with treatment regimen and current plan of care. History Interval history: Patient is a 61-year-old -[place] female with past medical history significant for hypertension, polycystic kidney disease, dementia, liver disease , renal failure, status post colostomy. Patient was brought in to ER by her niece for complaints of not eating and drinking well, back pain, non-specific abdominal pain that has been going on for the last 1 month. Patient is poor historian due to dementia and lethargy. Patient has been a heavy drinker for years but sober for the last few years. Hospitalist Physical - Constitutional Vitals: Temp Pulse Resp BP Pulse Ox 97.8 F 98 H 16 152/104 98 01/30/17 12:13 01/30/17 12:42 01/30/17 12:13 01/30/17 12:42 01/30/17 12:13 General appearance: Present: no acute distress, mild distress, disheveled, other (Malnourish with dry mucous membrane). Absent: malodorous - EENT Eyes: Present: PERRL, scleral icterus (Jaundice to Bilateral sclera) ENT: hearing intact, other (dry mucous membrance) - Neck Neck: Present: supple, normal ROM - Respiratory Respiratory effort: normal, other (clear bilaterally) - Cardiovascular Rhythm: regular Heart Sounds: Present: S1 & S2. Absent: gallop, systolic murmur, diastolic murmur - Extremities Extremities: pulses intact - Abdominal General gastrointestinal: tender, distended, hypoactive bowel sounds, other ( Significant ascites, and multiple masses) - Integumentary Integumentary: Present: warm, dry, jaundice - Psychiatric Psychiatric: other (History of Dementia) Results - Labs CBC & Chem 7: 01/30/17 07:46 01/30/17 07:46 Labs: Laboratory Last Values WBC 17.0 K/mm3 (4.5-11.0) H 01/30/17 07:46 RBC 3.49 M/mm3 (3.65-5.03) L 01/30/17 07:46 Hgb 9.1 gm/dl (10.1-14.3) L 01/30/17 07:46 Hct 29.3 % (30.3-42.9) L D 01/30/17 07:46 MCV 84 fl (79-97) 01/30/17 07:46 MCH 26 pg (28-32) L 01/30/17 07:46 MCHC 31 % (30-34) 01/30/17 07:46 RDW 17.6 % (13.2-15.2) H 01/30/17 07:46 Plt Count 263 K/mm3 (140-440) 01/30/17 07:46 Bates % (Auto) 4.8 % (0.0-7.3) 01/30/17 07:46 Eos % (Auto) 0.0 % (0.0-4.3) 01/30/17 07:46 Bates # 0.8 K/mm3 (0.0-0.8) 01/30/17 07:46 Eos # 0.0 K/mm3 (0.0-0.4) 01/30/17 07:46 Baso # 0.0 K/mm3 (0.0-0.1) 01/30/17 07:46 Add Manual Diff Complete 01/30/17 07:46 Total Counted 100 01/30/17 07:46 Seg Neutrophils % Wage Adjuster 01/29/17 16:12 Seg Neuts % (Manual) 91.0 % (40.0-70.0) H 01/30/17 07:46 Band Neutrophils % 0 % 01/30/17 07:46 Lymphocytes % (Manual) 3.0 % (13.4-35.0) L 01/30/17 07:46 Reactive Lymphs % (Man) 0 % 01/30/17 07:46 Monocytes % (Manual) 6.0 % (0.0-7.3) 01/30/17 07:46 Eosinophils % (Manual) 0 % (0.0-4.3) 01/30/17 07:46 Basophils % (Manual) 0 % (0.0-1.8) 01/30/17 07:46 Metamyelocytes % 0 % 01/30/17 07:46 Myelocytes % 0 % 01/30/17 07:46 Promyelocytes % 0 % 01/30/17 07:46 Blast Cells % 0 % 01/30/17 07:46 Nucleated RBC % Not Reportable 01/30/17 07:46 Seg Neutrophils # 15.0 K/mm3 (1.8-7.7) H 01/30/17 07:46 Seg Neutrophils # Man 15.5 K/mm3 (1.8-7.7) H 01/30/17 07:46 Band Neutrophils # 0.0 K/mm3 01/30/17 07:46 Lymphocytes # (Manual) 0.5 K/mm3 (1.2-5.4) L 01/30/17 07:46 Abs React Lymphs (Man) 0.0 K/mm3 01/30/17 07:46 Monocytes # (Manual) 1.0 K/mm3 (0.0-0.8) H 01/30/17 07:46 Eosinophils # (Manual) 0.0 K/mm3 (0.0-0.4) 01/30/17 07:46 Basophils # (Manual) 0.0 K/mm3 (0.0-0.1) 01/30/17 07:46 Metamyelocytes # 0.0 K/mm3 01/30/17 07:46 Myelocytes # 0.0 K/mm3 01/30/17 07:46 Promyelocytes # 0.0 K/mm3 01/30/17 07:46 Blast Cells # 0.0 K/mm3 01/30/17 07:46 WBC Morphology Not Reportable 01/30/17 07:46 Hypersegmented Neuts Not Reportable 01/30/17 07:46 Hyposegmented Neuts Not Reportable 01/30/17 07:46 Hypogranular Neuts Not Reportable 01/30/17 07:46 Smudge Cells Not Reportable 01/30/17 07:46 Toxic Granulation Not Reportable 01/30/17 07:46 Toxic Vacuolation Not Reportable 01/30/17 07:46 Dohle Bodies Not Reportable 01/30/17 07:46 Pelger-Huet Anomaly Not Reportable 01/30/17 07:46 Иван Rods Not Reportable 01/30/17 07:46 Platelet Estimate Consistent w auto 01/30/17 07:46 Clumped Platelets Not Reportable 01/30/17 07:46 Plt Clumps, EDTA Not Reportable 01/30/17 07:46 Large Platelets Not Reportable 01/30/17 07:46 Giant Platelets Not Reportable 01/30/17 07:46 Platelet Satelliting Not Reportable 01/30/17 07:46 Plt Morphology Comment Not Reportable 01/30/17 07:46 RBC Morphology Not Reportable 01/30/17 07:46 Dimorphic RBCs Not Reportable 01/30/17 07:46 Polychromasia Not Reportable 01/30/17 07:46 Hypochromasia Not Reportable 01/30/17 07:46 Poikilocytosis Few 01/30/17 07:46 Anisocytosis 1+ 01/30/17 07:46 Microcytosis Not Reportable 01/30/17 07:46 Macrocytosis Few 01/30/17 07:46 Spherocytes Not Reportable 01/30/17 07:46 Pappenheimer Bodies Not Reportable 01/30/17 07:46 Sickle Cells Not Reportable 01/30/17 07:46 Target Cells Not Reportable 01/30/17 07:46 Tear Drop Cells Not Reportable 01/30/17 07:46 Ovalocytes Not Reportable 01/30/17 07:46 Helmet Cells Not Reportable 01/30/17 07:46 [place] Bodies Not Reportable 01/30/17 07:46 [place] Rings Not Reportable 01/30/17 07:46 Vinnie Cells Few 01/30/17 07:46 Bite Cells Not Reportable 01/30/17 07:46 Crenated Cell Not Reportable 01/30/17 07:46 Elliptocytes Not Reportable 01/30/17 07:46 Acanthocytes (Spur) Not Reportable 01/30/17 07:46 Rouleaux Not Reportable 01/30/17 07:46 Hemoglobin C Crystals Not Reportable 01/30/17 07:46 Schistocytes Not Reportable 01/30/17 07:46 Malaria parasites Not Reportable 01/30/17 07:46 Sandro Bodies Not Reportable 01/30/17 07:46 Hem Pathologist Commnt No 01/30/17 07:46 PT 18.0 Sec. (12.2-14.9) H 01/29/17 16:18 INR 1.41 (0.87-1.13) H 01/29/17 16:18 APTT 33.5 Sec. (24.2-36.6) 01/29/17 16:18 Sodium 136 mmol/L (137-145) L 01/30/17 07:46 Potassium 4.2 mmol/L (3.6-5.0) 01/30/17 07:46 Chloride 99.2 mmol/L (98-107) 01/30/17 07:46 Carbon Dioxide 19 mmol/L (22-30) L 01/30/17 07:46 Anion Gap 22 mmol/L 01/30/17 07:46 BUN 25 mg/dL (7-17) H 01/30/17 07:46 Creatinine 1.3 mg/dL (0.7-1.2) H 01/30/17 07:46 Estimated GFR 51 ml/min 01/30/17 07:46 BUN/Creatinine Ratio 19 % 01/30/17 07:46 Glucose 72 mg/dL (65-100) 01/30/17 07:46 Lactic Acid 3.30 mmol/L (0.7-2.0) H* 01/29/17 23:29 Calcium 8.5 mg/dL (8.4-10.2) 01/30/17 07:46 Magnesium 2.00 mg/dL (1.7-2.3) 01/29/17 20:24 Total Bilirubin 3.40 mg/dL (0.1-1.2) H 01/30/17 07:46 AST 394 units/L (5-40) H 01/30/17 07:46 ALT 135 units/L (7-56) H 01/30/17 07:46 Alkaline Phosphatase 242 units/L (35-129) H 01/30/17 07:46 Ammonia 46.0 umol/L (25-60) 01/29/17 19:28 Total Creatine Kinase 188 units/L (30-135) H 01/30/17 07:46 NT-Pro-B Natriuret Pep 1747 pg/mL (0-900) H 01/29/17 16:19 Total Protein 5.5 g/dL (6.3-8.2) L 01/30/17 07:46 Albumin 2.6 g/dL (3.9-5) L 01/30/17 07:46 Albumin/Globulin Ratio 0.9 % 01/30/17 07:46 Lipase 39 units/L (13-60) 01/29/17 16:19 Urine Color Yellow (Yellow) 01/29/17 17:44 Urine Turbidity Clear (Clear) 01/29/17 17:44 Urine pH 5.0 (5.0-7.0) 01/29/17 17:44 Ur Specific [place] 1.009 (1.003-1.030) 01/29/17 17:44 Urine Protein <15 mg/dl mg/dL (Negative) 01/29/17 17:44 Urine Glucose (UA) Neg mg/dL (Negative) 01/29/17 17:44 Urine Ketones Neg mg/dL (Negative) 01/29/17 17:44 Urine Blood Neg (Negative) 01/29/17 17:44 Urine Nitrite Neg (Negative) 01/29/17 17:44 Urine Bilirubin Neg (Negative) 01/29/17 17:44 Urine Urobilinogen < 2.0 mg/dL (<2.0) 01/29/17 17:44 Ur Leukocyte Esterase Neg (Negative) 01/29/17 17:44 Urine WBC (Auto) 0.0 /HPF (0.0-6.0) 01/29/17 17:44 Urine RBC (Auto) < 1.0 /HPF (0.0-6.0) 01/29/17 17:44 Blood Type B POSITIVE 01/29/17 16:35 Antibody Screen Negative 01/29/17 16:35 - Imaging and Cardiology CT scan - abdomen: report reviewed (showed small moderate Right Pleural Effusion with mild atelectasis) CT Scan - head: report reviewed (No acute abnormality) <YOVANA PERSON - Last Filed: 01/31/17 07:01> Assessment and Plan Assessment and plan: I saw and evaluated the patient. I agree with the findings and the plan of care as documented in the Nurse Practitioner's~note, with the following corrections and additions. Decompensated Liver cirrhosis * secondary to Alcohol, now sober * GI eval pending, eval for HEAPTITIS * HCC survalence recommended Presumed SBP * Continue abx, wait diagnositic paracentesis ANGELLA secondary to possible hepatorenal syndrome\ * Nephrology following Anemia of chronic disease * Stable, will monitor Non compliance * Counselling provided Nephew who is healthcare sales representative at bedside, reports a family hx of cirrhosis Sepsis * Continue abx, await culture result will repeat lactate. Hospitalist Physical - Constitutional Vitals: Temp Pulse Resp BP Pulse Ox 98.8 F 96 H 17 156/102 100 01/30/17 21:48 01/30/17 21:45 01/30/17 21:45 01/30/17 21:45 01/30/17 21:45 Results - Labs CBC & Chem 7: 01/31/17 05:14 01/31/17 05:14 Labs: Laboratory Last Values WBC 16.1 K/mm3 (4.5-11.0) H 01/31/17 05:14 RBC 3.62 M/mm3 (3.65-5.03) L 01/31/17 05:14 Hgb 9.5 gm/dl (10.1-14.3) L 01/31/17 05:14 Hct 30.5 % (30.3-42.9) 01/31/17 05:14 MCV 84 fl (79-97) 01/31/17 05:14 MCH 26 pg (28-32) L 01/31/17 05:14 MCHC 31 % (30-34) 01/31/17 05:14 RDW 18.0 % (13.2-15.2) H 01/31/17 05:14 Plt Count 237 K/mm3 (140-440) 01/31/17 05:14 Lymph % (Auto) 5.5 % (13.4-35.0) L 01/31/17 05:14 Bates % (Auto) 5.7 % (0.0-7.3) 01/31/17 05:14 Eos % (Auto) 0.0 % (0.0-4.3) 01/31/17 05:14 Baso % (Auto) 0.2 % (0.0-1.8) 01/31/17 05:14 Lymph # 0.9 K/mm3 (1.2-5.4) L 01/31/17 05:14 Bates # 0.9 K/mm3 (0.0-0.8) H 01/31/17 05:14 Eos # 0.0 K/mm3 (0.0-0.4) 01/31/17 05:14 Baso # 0.0 K/mm3 (0.0-0.1) 01/31/17 05:14 Add Manual Diff Complete 01/30/17 07:46 Total Counted 100 01/30/17 07:46 Seg Neutrophils % 88.6 % (40.0-70.0) H 01/31/17 05:14 Seg Neuts % (Manual) 91.0 % (40.0-70.0) H 01/30/17 07:46 Band Neutrophils % 0 % 01/30/17 07:46 Lymphocytes % (Manual) 3.0 % (13.4-35.0) L 01/30/17 07:46 Reactive Lymphs % (Man) 0 % 01/30/17 07:46 Monocytes % (Manual) 6.0 % (0.0-7.3) 01/30/17 07:46 Eosinophils % (Manual) 0 % (0.0-4.3) 01/30/17 07:46 Basophils % (Manual) 0 % (0.0-1.8) 01/30/17 07:46 Metamyelocytes % 0 % 01/30/17 07:46 Myelocytes % 0 % 01/30/17 07:46 Promyelocytes % 0 % 01/30/17 07:46 Blast Cells % 0 % 01/30/17 07:46 Nucleated RBC % Not Reportable 01/30/17 07:46 Seg Neutrophils # 14.3 K/mm3 (1.8-7.7) H 01/31/17 05:14 Seg Neutrophils # Man 15.5 K/mm3 (1.8-7.7) H 01/30/17 07:46 Band Neutrophils # 0.0 K/mm3 01/30/17 07:46 Lymphocytes # (Manual) 0.5 K/mm3 (1.2-5.4) L 01/30/17 07:46 Abs React Lymphs (Man) 0.0 K/mm3 01/30/17 07:46 Monocytes # (Manual) 1.0 K/mm3 (0.0-0.8) H 01/30/17 07:46 Eosinophils # (Manual) 0.0 K/mm3 (0.0-0.4) 01/30/17 07:46 Basophils # (Manual) 0.0 K/mm3 (0.0-0.1) 01/30/17 07:46 Metamyelocytes # 0.0 K/mm3 01/30/17 07:46 Myelocytes # 0.0 K/mm3 01/30/17 07:46 Promyelocytes # 0.0 K/mm3 01/30/17 07:46 Blast Cells # 0.0 K/mm3 01/30/17 07:46 WBC Morphology Not Reportable 01/30/17 07:46 Hypersegmented Neuts Not Reportable 01/30/17 07:46 Hyposegmented Neuts Not Reportable 01/30/17 07:46 Hypogranular Neuts Not Reportable 01/30/17 07:46 Smudge Cells Not Reportable 01/30/17 07:46 Toxic Granulation Not Reportable 01/30/17 07:46 Toxic Vacuolation Not Reportable 01/30/17 07:46 Dohle Bodies Not Reportable 01/30/17 07:46 Pelger-Huet Anomaly Not Reportable 01/30/17 07:46 Иван Rods Not Reportable 01/30/17 07:46 Platelet Estimate Consistent w auto 01/30/17 07:46 Clumped Platelets Not Reportable 01/30/17 07:46 Plt Clumps, EDTA Not Reportable 01/30/17 07:46 Large Platelets Not Reportable 01/30/17 07:46 Giant Platelets Not Reportable 01/30/17 07:46 Platelet Satelliting Not Reportable 01/30/17 07:46 Plt Morphology Comment Not Reportable 01/30/17 07:46 RBC Morphology Not Reportable 01/30/17 07:46 Dimorphic RBCs Not Reportable 01/30/17 07:46 Polychromasia Not Reportable 01/30/17 07:46 Hypochromasia Not Reportable 01/30/17 07:46 Poikilocytosis Few 01/30/17 07:46 Anisocytosis 1+ 01/30/17 07:46 Microcytosis Not Reportable 01/30/17 07:46 Macrocytosis Few 01/30/17 07:46 Spherocytes Not Reportable 01/30/17 07:46 Pappenheimer Bodies Not Reportable 01/30/17 07:46 Sickle Cells Not Reportable 01/30/17 07:46 Target Cells Not Reportable 01/30/17 07:46 Tear Drop Cells Not Reportable 01/30/17 07:46 Ovalocytes Not Reportable 01/30/17 07:46 Helmet Cells Not Reportable 01/30/17 07:46 [place] Bodies Not Reportable 01/30/17 07:46 [place] Rings Not Reportable 01/30/17 07:46 Felt Cells Few 01/30/17 07:46 Bite Cells Not Reportable 01/30/17 07:46 Crenated Cell Not Reportable 01/30/17 07:46 Elliptocytes Not Reportable 01/30/17 07:46 Acanthocytes (Spur) Not Reportable 01/30/17 07:46 Rouleaux Not Reportable 01/30/17 07:46 Hemoglobin C Crystals Not Reportable 01/30/17 07:46 Schistocytes Not Reportable 01/30/17 07:46 Malaria parasites Not Reportable 01/30/17 07:46 Sandro Bodies Not Reportable 01/30/17 07:46 Hem Pathologist Commnt No 01/30/17 07:46 PT 18.7 Sec. (12.2-14.9) H 01/30/17 15:07 INR 1.48 (0.87-1.13) H 01/30/17 15:07 APTT 33.5 Sec. (24.2-36.6) 01/29/17 16:18 Sodium 138 mmol/L (137-145) 01/31/17 05:14 Potassium 4.2 mmol/L (3.6-5.0) 01/31/17 05:14 Chloride 101.3 mmol/L (98-107) 01/31/17 05:14 Carbon Dioxide 18 mmol/L (22-30) L 01/31/17 05:14 Anion Gap 23 mmol/L 01/31/17 05:14 BUN 29 mg/dL (7-17) H 01/31/17 05:14 Creatinine 1.4 mg/dL (0.7-1.2) H 01/31/17 05:14 Estimated GFR 46 ml/min 01/31/17 05:14 BUN/Creatinine Ratio 21 % 01/31/17 05:14 Glucose 92 mg/dL (65-100) 01/31/17 05:14 Lactic Acid 3.30 mmol/L (0.7-2.0) H* 01/29/17 23:29 Calcium 8.9 mg/dL (8.4-10.2) 01/31/17 05:14 Magnesium 2.00 mg/dL (1.7-2.3) 01/29/17 20:24 Total Bilirubin 3.80 mg/dL (0.1-1.2) H 01/31/17 05:14 AST 394 units/L (5-40) H 01/30/17 07:46 ALT 255 units/L (7-56) H 01/31/17 05:14 Alkaline Phosphatase 284 units/L (35-129) H 01/31/17 05:14 Ammonia 46.0 umol/L (25-60) 01/29/17 19:28 Total Creatine Kinase 188 units/L (30-135) H 01/30/17 07:46 NT-Pro-B Natriuret Pep 1747 pg/mL (0-900) H 01/29/17 16:19 Total Protein 5.2 g/dL (6.3-8.2) L 01/31/17 05:14 Albumin 2.6 g/dL (3.9-5) L 01/31/17 05:14 Albumin/Globulin Ratio 1.0 % 01/31/17 05:14 Lipase 39 units/L (13-60) 01/29/17 16:19 Urine Color Yellow (Yellow) 01/29/17 17:44 Urine Turbidity Clear (Clear) 01/29/17 17:44 Urine pH 5.0 (5.0-7.0) 01/29/17 17:44 Ur Specific [place] 1.009 (1.003-1.030) 01/29/17 17:44 Urine Protein <15 mg/dl mg/dL (Negative) 01/29/17 17:44 Urine Glucose (UA) Neg mg/dL (Negative) 01/29/17 17:44 Urine Ketones Neg mg/dL (Negative) 01/29/17 17:44 Urine Blood Neg (Negative) 01/29/17 17:44 Urine Nitrite Neg (Negative) 01/29/17 17:44 Urine Bilirubin Neg (Negative) 01/29/17 17:44 Urine Urobilinogen < 2.0 mg/dL (<2.0) 01/29/17 17:44 Ur Leukocyte Esterase Neg (Negative) 01/29/17 17:44 Urine WBC (Auto) 0.0 /HPF (0.0-6.0) 01/29/17 17:44 Urine RBC (Auto) < 1.0 /HPF (0.0-6.0) 01/29/17 17:44 Blood Type B POSITIVE 01/29/17 16:35 Antibody Screen Negative 01/29/17 16:35
[2017-01-30 15:41] LABS: INR 1.48 (0.87-1.13)
[2017-01-31] MEDS: NACL 0.9% 1000 ML 1,000 ML IV SCH (04:34)
[2017-01-31 05:45] LABS: Basophils % (Auto) 0.2 % (0.0-1.8); Hematocrit 30.5 % (30.3-42.9); Hemoglobin 9.5 gm/dl (10.1-14.3); Mean Corpuscular HGB Conc 31 % (30-34); Mean Corpuscular Hemoglobin 26 pg (28-32); Mean Corpuscular Volume 84 fl (79-97); Platelet Count 237 K/mm3 (140-440); Red Blood Count 3.62 M/mm3 (3.65-5.03); White Blood Count 16.1 K/mm3 (4.5-11.0)
[2017-01-31 06:12] LABS: Albumin 2.6 g/dL (3.9-5); Bilirubin,Total 3.8 mg/dL (0.1-1.2); Calcium 8.9 mg/dL (8.4-10.2); Chloride 101.3 mmol/L (98-107); Potassium 4.2 mmol/L (3.6-5.0); Total Protein 5.2 g/dL (6.3-8.2)
[2017-01-31] MEDS ORDERED: VITAMIN K *ORAL LIQUID PO ONE (06:58)
--- NOTE | 2017-01-31 09:03 | Progress Note ---
Assessment and Plan 1. Acute kidney injury: ANGELLA superimposed on CKD in the setting of volume depletion. UA is bland. Continue IV fluids. Monitor renal function. 2. Polycystic kidney disease. 3. Liver masses. 4. Sepsis. 5. Elevated Liver enzymes. 6. Anemia. Subjective Date of service: 01/31/17 Interval history: Patient is doing ok. Objective - Vital Signs Vital signs: Vital Signs - 12hr 01/30/17 01/30/17 01/31/17 21:45 21:48 08:10 Temperature 98.8 F 98.5 F Pulse Rate 96 H 96 H Respiratory 17 20 Rate Blood Pressure 156/102 138/93 O2 Sat by Pulse 100 99 Oximetry - General Appearance General appearance: well-developed, appears stated age, other (no distress) EENT: ATNC, PERRL, hearing intact, vision intact Neck: supple Respiratory: Present: Clear to Ascultation Cardiology: regular, S1S2, no murmurs Gastrointestinal: tenderness (diffuse), distended, masses (firm to hard masses) , pulsatile liver, other (ostomy noted) Integumentary: no rash, warm and dry Neurologic: no focal deficit, no asterixis Musculoskeletal: other (no edema) Psychiatric: cooperative - Lab 02/01/17 06:27 02/01/17 06:27 Most recent lab results Calcium 8.9 mg/dL (8.4-10.2) 01/31/17 05:14 Magnesium 2.00 mg/dL (1.7-2.3) 01/29/17 20:24
--- NOTE | 2017-01-31 09:50 | Progress Note ---
<SALVADOR HILL - Last Filed: 01/31/17 10:09> Assessment and Plan Assessment and plan: Assessment: Patient seen and evaluated today, appeared malnourished with dry mucous membranes. Is more awake and responsive today, no apparent distress noted. Jaundice to sclera bilaterally. Pupils equal and reactive to light and accommodations. Neck is without jugular distension and adenopathy. Lungs clear to auscultation bilaterally. Noted with normal heart sound, regular with S1 S2, +2 pulses throughout. No edema noted to extremities. Abdomen noted with significant ascites, tenderness and multiple areas of masses, hypoactive bowel sounds throughout. Colostomy to left lower quadrant, in which clean and intact. Skin warm, dry and intact. Plan: Nutrition: Continuing with IV Fluids @ 50ml/hr Continue on Clear Liquid Diet Nutrition consult for further evaluation of malnutrition. GI: Cirrhosis with Ascites: Secondary to ETOH, now sober GI Consulted for evaluation of Hepatitis and abdominal ascites Lactulose for amonia levels and altered mental status. Therapeutic paracenthesis for therapeutic and diagnostic treatment schedule for today Sc heparin placed on hold pendiing diagnostic procedure HCC Survalance Recommended Follow Labs: CBC, CMP, Amonia Levels Hypertension: Continue antihypertensive medication Amlodipine and IV Hydralazine PRN. Polycystic Kidney Disease: Nephrology following IV Fluids Monitor Kidney Function Sepsis Continue ABX therapy, awaiting culture results Follow Lactic Acid Levels: Trending down today noted at 2.40 Patient has been seen in conjunction with Dr Person who agree with treatment regimen and current plan of care. History Interval history: Patient is a 61-year-old -[place] female with past medical history significant for hypertension, polycystic kidney disease, dementia, liver disease , renal failure, status post colostomy. Patient was brought in to ER by her niece for complaints of not eating and drinking well, back pain, non-specific abdominal pain that has been going on for the last 1 month. Patient is poor historian due to dementia, lethargy and periods of confusion. Nephew is at bedside and is historian. Patient has been a heavy drinker for years but sober for the last few years. Hospitalist Physical - Constitutional Vitals: Temp Pulse Resp BP Pulse Ox 98.5 F 96 H 20 138/93 99 01/31/17 08:10 01/31/17 08:10 01/31/17 08:10 01/31/17 08:10 01/31/17 08:10 General appearance: Present: no acute distress, mild distress, disheveled, other (Malnourish with dry mucous membrane). Absent: malodorous - EENT Eyes: Present: PERRL (Jaundice to bilateral sclera) - Neck Neck: Present: normal ROM. Absent: enlarged thyroid, masses or JVD, carotid bruits - Respiratory Respiratory effort: labored (slightly labored possible from significant ascites. ) - Cardiovascular Rhythm: regular Heart Sounds: Present: S1 & S2. Absent: gallop, systolic murmur, diastolic murmur, rub - Extremities Extremities: pulses intact, pulses symmetrical, No edema, normal temperature Peripheral Pulses: within normal limits - Abdominal General gastrointestinal: tender, distended (Significant ascites), other ( colostomy to Left Lower Quadrant) - Integumentary Integumentary: Present: warm, dry, jaundice - Psychiatric Psychiatric: appropriate mood/affect Results - Labs CBC & Chem 7: 01/31/17 05:14 01/31/17 05:14 Labs: Laboratory Last Values WBC 16.1 K/mm3 (4.5-11.0) H 01/31/17 05:14 RBC 3.62 M/mm3 (3.65-5.03) L 01/31/17 05:14 Hgb 9.5 gm/dl (10.1-14.3) L 01/31/17 05:14 Hct 30.5 % (30.3-42.9) 01/31/17 05:14 MCV 84 fl (79-97) 01/31/17 05:14 MCH 26 pg (28-32) L 01/31/17 05:14 MCHC 31 % (30-34) 01/31/17 05:14 RDW 18.0 % (13.2-15.2) H 01/31/17 05:14 Plt Count 237 K/mm3 (140-440) 01/31/17 05:14 Lymph % (Auto) 5.5 % (13.4-35.0) L 01/31/17 05:14 [place] % (Auto) 5.7 % (0.0-7.3) 01/31/17 05:14 Eos % (Auto) 0.0 % (0.0-4.3) 01/31/17 05:14 Baso % (Auto) 0.2 % (0.0-1.8) 01/31/17 05:14 Lymph # 0.9 K/mm3 (1.2-5.4) L 01/31/17 05:14 [place] # 0.9 K/mm3 (0.0-0.8) H 01/31/17 05:14 Eos # 0.0 K/mm3 (0.0-0.4) 01/31/17 05:14 Baso # 0.0 K/mm3 (0.0-0.1) 01/31/17 05:14 Add Manual Diff Complete 01/30/17 07:46 Total Counted 100 01/30/17 07:46 Seg Neutrophils % 88.6 % (40.0-70.0) H 01/31/17 05:14 Seg Neuts % (Manual) 91.0 % (40.0-70.0) H 01/30/17 07:46 Band Neutrophils % 0 % 01/30/17 07:46 Lymphocytes % (Manual) 3.0 % (13.4-35.0) L 01/30/17 07:46 Reactive Lymphs % (Man) 0 % 01/30/17 07:46 Monocytes % (Manual) 6.0 % (0.0-7.3) 01/30/17 07:46 Eosinophils % (Manual) 0 % (0.0-4.3) 01/30/17 07:46 Basophils % (Manual) 0 % (0.0-1.8) 01/30/17 07:46 Metamyelocytes % 0 % 01/30/17 07:46 Myelocytes % 0 % 01/30/17 07:46 Promyelocytes % 0 % 01/30/17 07:46 Blast Cells % 0 % 01/30/17 07:46 Nucleated RBC % Not Reportable 01/30/17 07:46 Seg Neutrophils # 14.3 K/mm3 (1.8-7.7) H 01/31/17 05:14 Seg Neutrophils # Man 15.5 K/mm3 (1.8-7.7) H 01/30/17 07:46 Band Neutrophils # 0.0 K/mm3 01/30/17 07:46 Lymphocytes # (Manual) 0.5 K/mm3 (1.2-5.4) L 01/30/17 07:46 Abs React Lymphs (Man) 0.0 K/mm3 01/30/17 07:46 Monocytes # (Manual) 1.0 K/mm3 (0.0-0.8) H 01/30/17 07:46 Eosinophils # (Manual) 0.0 K/mm3 (0.0-0.4) 01/30/17 07:46 Basophils # (Manual) 0.0 K/mm3 (0.0-0.1) 01/30/17 07:46 Metamyelocytes # 0.0 K/mm3 01/30/17 07:46 Myelocytes # 0.0 K/mm3 01/30/17 07:46 Promyelocytes # 0.0 K/mm3 01/30/17 07:46 Blast Cells # 0.0 K/mm3 01/30/17 07:46 WBC Morphology Not Reportable 01/30/17 07:46 Hypersegmented Neuts Not Reportable 01/30/17 07:46 Hyposegmented Neuts Not Reportable 01/30/17 07:46 Hypogranular Neuts Not Reportable 01/30/17 07:46 Smudge Cells Not Reportable 01/30/17 07:46 Toxic Granulation Not Reportable 01/30/17 07:46 Toxic Vacuolation Not Reportable 01/30/17 07:46 Dohle Bodies Not Reportable 01/30/17 07:46 Pelger-Huet Anomaly Not Reportable 01/30/17 07:46 Иван Rods Not Reportable 01/30/17 07:46 Platelet Estimate Consistent w auto 01/30/17 07:46 Clumped Platelets Not Reportable 01/30/17 07:46 Plt Clumps, EDTA Not Reportable 01/30/17 07:46 Large Platelets Not Reportable 01/30/17 07:46 Giant Platelets Not Reportable 01/30/17 07:46 Platelet Satelliting Not Reportable 01/30/17 07:46 Plt Morphology Comment Not Reportable 01/30/17 07:46 RBC Morphology Not Reportable 01/30/17 07:46 Dimorphic RBCs Not Reportable 01/30/17 07:46 Polychromasia Not Reportable 01/30/17 07:46 Hypochromasia Not Reportable 01/30/17 07:46 Poikilocytosis Few 01/30/17 07:46 Anisocytosis 1+ 01/30/17 07:46 Microcytosis Not Reportable 01/30/17 07:46 Macrocytosis Few 01/30/17 07:46 Spherocytes Not Reportable 01/30/17 07:46 Pappenheimer Bodies Not Reportable 01/30/17 07:46 Sickle Cells Not Reportable 01/30/17 07:46 Target Cells Not Reportable 01/30/17 07:46 Tear Drop Cells Not Reportable 01/30/17 07:46 Ovalocytes Not Reportable 01/30/17 07:46 Helmet Cells Not Reportable 01/30/17 07:46 [place] Bodies Not Reportable 01/30/17 07:46 [place] Rings Not Reportable 01/30/17 07:46 [place]innie Cells Few 01/30/17 07:46 Bite Cells Not Reportable 01/30/17 07:46 Crenated Cell Not Reportable 01/30/17 07:46 Elliptocytes Not Reportable 01/30/17 07:46 Acanthocytes (Spur) Not Reportable 01/30/17 07:46 Rouleaux Not Reportable 01/30/17 07:46 Hemoglobin C Crystals Not Reportable 01/30/17 07:46 Schistocytes Not Reportable 01/30/17 07:46 Malaria parasites Not Reportable 01/30/17 07:46 Sandro Bodies Not Reportable 01/30/17 07:46 Hem Pathologist Commnt No 01/30/17 07:46 PT 18.7 Sec. (12.2-14.9) H 01/30/17 15:07 INR 1.48 (0.87-1.13) H 01/30/17 15:07 APTT 33.5 Sec. (24.2-36.6) 01/29/17 16:18 Sodium 138 mmol/L (137-145) 01/31/17 05:14 Potassium 4.2 mmol/L (3.6-5.0) 01/31/17 05:14 Chloride 101.3 mmol/L (98-107) 01/31/17 05:14 Carbon Dioxide 18 mmol/L (22-30) L 01/31/17 05:14 Anion Gap 23 mmol/L 01/31/17 05:14 BUN 29 mg/dL (7-17) H 01/31/17 05:14 Creatinine 1.4 mg/dL (0.7-1.2) H 01/31/17 05:14 Estimated GFR 46 ml/min 01/31/17 05:14 BUN/Creatinine Ratio 21 % 01/31/17 05:14 Glucose 92 mg/dL (65-100) 01/31/17 05:14 Lactic Acid 2.40 mmol/L (0.7-2.0) H* 01/31/17 08:23 Calcium 8.9 mg/dL (8.4-10.2) 01/31/17 05:14 Magnesium 2.00 mg/dL (1.7-2.3) 01/29/17 20:24 Total Bilirubin 3.80 mg/dL (0.1-1.2) H 01/31/17 05:14 AST 1023 units/L (5-40) H 01/31/17 05:14 ALT 255 units/L (7-56) H 01/31/17 05:14 Alkaline Phosphatase 284 units/L (35-129) H 01/31/17 05:14 Ammonia 46.0 umol/L (25-60) 01/29/17 19:28 Total Creatine Kinase 188 units/L (30-135) H 01/30/17 07:46 NT-Pro-B Natriuret Pep 1747 pg/mL (0-900) H 01/29/17 16:19 Total Protein 5.2 g/dL (6.3-8.2) L 01/31/17 05:14 Albumin 2.6 g/dL (3.9-5) L 01/31/17 05:14 Albumin/Globulin Ratio 1.0 % 01/31/17 05:14 Lipase 39 units/L (13-60) 01/29/17 16:19 Urine Color Yellow (Yellow) 01/29/17 17:44 Urine Turbidity Clear (Clear) 01/29/17 17:44 Urine pH 5.0 (5.0-7.0) 01/29/17 17:44 Ur Specific [place] 1.009 (1.003-1.030) 01/29/17 17:44 Urine Protein <15 mg/dl mg/dL (Negative) 01/29/17 17:44 Urine Glucose (UA) Neg mg/dL (Negative) 01/29/17 17:44 Urine Ketones Neg mg/dL (Negative) 01/29/17 17:44 Urine Blood Neg (Negative) 01/29/17 17:44 Urine Nitrite Neg (Negative) 01/29/17 17:44 Urine Bilirubin Neg (Negative) 01/29/17 17:44 Urine Urobilinogen < 2.0 mg/dL (<2.0) 01/29/17 17:44 Ur Leukocyte Esterase Neg (Negative) 01/29/17 17:44 Urine WBC (Auto) 0.0 /HPF (0.0-6.0) 01/29/17 17:44 Urine RBC (Auto) < 1.0 /HPF (0.0-6.0) 01/29/17 17:44 Blood Type B POSITIVE 01/29/17 16:35 Antibody Screen Negative 01/29/17 16:35 <YOVANA PERSON - Last Filed: 01/31/17 12:50> Assessment and Plan Assessment and plan: Decompensated Liver cirrhosis * secondary to Alcohol, now sober * GI eval pending, eval for HEAPTITIS * HCC survalence recommended Presumed SBP * Continue abx, wait diagnositic paracentesis ANGELLA secondary to possible hepatorenal syndrome * Nephrology following Anemia of chronic disease * Stable, will monitor Non compliance * Counselling provided Nephew who is behavioral health care manager at bedside, reports a family hx of cirrhosis Sepsis * Continue abx, await culture result will repeat lactate. Hospitalist Physical - Constitutional Vitals: Temp Pulse Resp BP Pulse Ox 98.5 F 96 H 20 138/93 99 01/31/17 08:10 01/31/17 08:10 01/31/17 08:10 01/31/17 08:10 01/31/17 08:10 Results - Labs CBC & Chem 7: 01/31/17 05:14 01/31/17 05:14 Labs: Laboratory Last Values WBC 16.1 K/mm3 (4.5-11.0) H 01/31/17 05:14 RBC 3.62 M/mm3 (3.65-5.03) L 01/31/17 05:14 Hgb 9.5 gm/dl (10.1-14.3) L 01/31/17 05:14 Hct 30.5 % (30.3-42.9) 01/31/17 05:14 MCV 84 fl (79-97) 01/31/17 05:14 MCH 26 pg (28-32) L 01/31/17 05:14 MCHC 31 % (30-34) 01/31/17 05:14 RDW 18.0 % (13.2-15.2) H 01/31/17 05:14 Plt Count 237 K/mm3 (140-440) 01/31/17 05:14 Lymph % (Auto) 5.5 % (13.4-35.0) L 01/31/17 05:14 [place] % (Auto) 5.7 % (0.0-7.3) 01/31/17 05:14 Eos % (Auto) 0.0 % (0.0-4.3) 01/31/17 05:14 Baso % (Auto) 0.2 % (0.0-1.8) 01/31/17 05:14 Lymph # 0.9 K/mm3 (1.2-5.4) L 01/31/17 05:14 [place] # 0.9 K/mm3 (0.0-0.8) H 01/31/17 05:14 Eos # 0.0 K/mm3 (0.0-0.4) 01/31/17 05:14 Baso # 0.0 K/mm3 (0.0-0.1) 01/31/17 05:14 Add Manual Diff Complete 01/30/17 07:46 Total Counted 100 01/30/17 07:46 Seg Neutrophils % 88.6 % (40.0-70.0) H 01/31/17 05:14 Seg Neuts % (Manual) 91.0 % (40.0-70.0) H 01/30/17 07:46 Band Neutrophils % 0 % 01/30/17 07:46 Lymphocytes % (Manual) 3.0 % (13.4-35.0) L 01/30/17 07:46 Reactive Lymphs % (Man) 0 % 01/30/17 07:46 Monocytes % (Manual) 6.0 % (0.0-7.3) 01/30/17 07:46 Eosinophils % (Manual) 0 % (0.0-4.3) 01/30/17 07:46 Basophils % (Manual) 0 % (0.0-1.8) 01/30/17 07:46 Metamyelocytes % 0 % 01/30/17 07:46 Myelocytes % 0 % 01/30/17 07:46 Promyelocytes % 0 % 01/30/17 07:46 Blast Cells % 0 % 01/30/17 07:46 Nucleated RBC % Not Reportable 01/30/17 07:46 Seg Neutrophils # 14.3 K/mm3 (1.8-7.7) H 01/31/17 05:14 Seg Neutrophils # Man 15.5 K/mm3 (1.8-7.7) H 01/30/17 07:46 Band Neutrophils # 0.0 K/mm3 01/30/17 07:46 Lymphocytes # (Manual) 0.5 K/mm3 (1.2-5.4) L 01/30/17 07:46 Abs React Lymphs (Man) 0.0 K/mm3 01/30/17 07:46 Monocytes # (Manual) 1.0 K/mm3 (0.0-0.8) H 01/30/17 07:46 Eosinophils # (Manual) 0.0 K/mm3 (0.0-0.4) 01/30/17 07:46 Basophils # (Manual) 0.0 K/mm3 (0.0-0.1) 01/30/17 07:46 Metamyelocytes # 0.0 K/mm3 01/30/17 07:46 Myelocytes # 0.0 K/mm3 01/30/17 07:46 Promyelocytes # 0.0 K/mm3 01/30/17 07:46 Blast Cells # 0.0 K/mm3 01/30/17 07:46 WBC Morphology Not Reportable 01/30/17 07:46 Hypersegmented Neuts Not Reportable 01/30/17 07:46 Hyposegmented Neuts Not Reportable 01/30/17 07:46 Hypogranular Neuts Not Reportable 01/30/17 07:46 Smudge Cells Not Reportable 01/30/17 07:46 Toxic Granulation Not Reportable 01/30/17 07:46 Toxic Vacuolation Not Reportable 01/30/17 07:46 Dohle Bodies Not Reportable 01/30/17 07:46 Pelger-Huet Anomaly Not Reportable 01/30/17 07:46 Иван Rods Not Reportable 01/30/17 07:46 Platelet Estimate Consistent w auto 01/30/17 07:46 Clumped Platelets Not Reportable 01/30/17 07:46 Plt Clumps, EDTA Not Reportable 01/30/17 07:46 Large Platelets Not Reportable 01/30/17 07:46 Giant Platelets Not Reportable 01/30/17 07:46 Platelet Satelliting Not Reportable 01/30/17 07:46 Plt Morphology Comment Not Reportable 01/30/17 07:46 RBC Morphology Not Reportable 01/30/17 07:46 Dimorphic RBCs Not Reportable 01/30/17 07:46 Polychromasia Not Reportable 01/30/17 07:46 Hypochromasia Not Reportable 01/30/17 07:46 Poikilocytosis Few 01/30/17 07:46 Anisocytosis 1+ 01/30/17 07:46 Microcytosis Not Reportable 01/30/17 07:46 Macrocytosis Few 01/30/17 07:46 Spherocytes Not Reportable 01/30/17 07:46 Pappenheimer Bodies Not Reportable 01/30/17 07:46 Sickle Cells Not Reportable 01/30/17 07:46 Target Cells Not Reportable 01/30/17 07:46 Tear Drop Cells Not Reportable 01/30/17 07:46 Ovalocytes Not Reportable 01/30/17 07:46 Helmet Cells Not Reportable 01/30/17 07:46 [place] Bodies Not Reportable 01/30/17 07:46 [place] Rings Not Reportable 01/30/17 07:46 [place] Cells Few 01/30/17 07:46 Bite Cells Not Reportable 01/30/17 07:46 Crenated Cell Not Reportable 01/30/17 07:46 Elliptocytes Not Reportable 01/30/17 07:46 Acanthocytes (Spur) Not Reportable 01/30/17 07:46 Rouleaux Not Reportable 01/30/17 07:46 Hemoglobin C Crystals Not Reportable 01/30/17 07:46 Schistocytes Not Reportable 01/30/17 07:46 Malaria parasites Not Reportable 01/30/17 07:46 [place] Bodies Not Reportable 01/30/17 07:46 Hem Pathologist Commnt No 01/30/17 07:46 PT 18.7 Sec. (12.2-14.9) H 01/30/17 15:07 INR 1.48 (0.87-1.13) H 01/30/17 15:07 APTT 33.5 Sec. (24.2-36.6) 01/29/17 16:18 Sodium 138 mmol/L (137-145) 01/31/17 05:14 Potassium 4.2 mmol/L (3.6-5.0) 01/31/17 05:14 Chloride 101.3 mmol/L (98-107) 01/31/17 05:14 Carbon Dioxide 18 mmol/L (22-30) L 01/31/17 05:14 Anion Gap 23 mmol/L 01/31/17 05:14 BUN 29 mg/dL (7-17) H 01/31/17 05:14 Creatinine 1.4 mg/dL (0.7-1.2) H 01/31/17 05:14 Estimated GFR 46 ml/min 01/31/17 05:14 BUN/Creatinine Ratio 21 % 01/31/17 05:14 Glucose 92 mg/dL (65-100) 01/31/17 05:14 Lactic Acid 2.40 mmol/L (0.7-2.0) H* 01/31/17 08:23 Calcium 8.9 mg/dL (8.4-10.2) 01/31/17 05:14 Magnesium 2.00 mg/dL (1.7-2.3) 01/29/17 20:24 Total Bilirubin 3.80 mg/dL (0.1-1.2) H 01/31/17 05:14 AST 1023 units/L (5-40) H 01/31/17 05:14 ALT 255 units/L (7-56) H 01/31/17 05:14 Alkaline Phosphatase 284 units/L (35-129) H 01/31/17 05:14 Ammonia 46.0 umol/L (25-60) 01/29/17 19:28 Total Creatine Kinase 188 units/L (30-135) H 01/30/17 07:46 NT-Pro-B Natriuret Pep 1747 pg/mL (0-900) H 01/29/17 16:19 Total Protein 5.2 g/dL (6.3-8.2) L 01/31/17 05:14 Albumin 2.6 g/dL (3.9-5) L 01/31/17 05:14 Albumin/Globulin Ratio 1.0 % 01/31/17 05:14 Lipase 39 units/L (13-60) 01/29/17 16:19 Urine Color Yellow (Yellow) 01/29/17 17:44 Urine Turbidity Clear (Clear) 01/29/17 17:44 Urine pH 5.0 (5.0-7.0) 01/29/17 17:44 Ur Specific [place] 1.009 (1.003-1.030) 01/29/17 17:44 Urine Protein <15 mg/dl mg/dL (Negative) 01/29/17 17:44 Urine Glucose (UA) Neg mg/dL (Negative) 01/29/17 17:44 Urine Ketones Neg mg/dL (Negative) 01/29/17 17:44 Urine Blood Neg (Negative) 01/29/17 17:44 Urine Nitrite Neg (Negative) 01/29/17 17:44 Urine Bilirubin Neg (Negative) 01/29/17 17:44 Urine Urobilinogen < 2.0 mg/dL (<2.0) 01/29/17 17:44 Ur Leukocyte Esterase Neg (Negative) 01/29/17 17:44 Urine WBC (Auto) 0.0 /HPF (0.0-6.0) 01/29/17 17:44 Urine RBC (Auto) < 1.0 /HPF (0.0-6.0) 01/29/17 17:44 Hepatitis A IgM Ab Non-reactive (NonReactive) 01/31/17 08:23 Hep Bs Antigen Non-reactive (Negative) 01/31/17 08:23 Hep B Core IgM Ab Non-reactive (NonReactive) 01/31/17 08:23 Hepatitis C Antibody Non-reactive (NonReactive) 01/31/17 08:23 Blood Type B POSITIVE 01/29/17 16:35 Antibody Screen Negative 01/29/17 16:35
[2017-01-31] MEDS: CEPHULAC PO SCH (10:20)
[2017-01-31] MEDS: NORVASC PO SCH (10:20)
[2017-01-31] MEDS: HEPARIN SUB-Q SCH ×2 (10:20→22:02)
[2017-01-31] MEDS: SODIUM BICARBONATE PO SCH ×2 (10:20→22:02)
[2017-01-31] MEDS: LEVAQUIN 750MG/150ML 750 MG/150 ML BAG IV SCH (10:40)
--- NOTE | 2017-01-31 11:56 | Ultrasound Report ---
ULTRASOUND PARACENTESIS History: Ascites. Description of procedure: Informed consent was obtained. Sterile technique was utilized. 1% lidocaine for skin anesthesia. Using ultrasound guidance, a 5 Macedonian centesis needle was advanced into the peritoneal space through the lower abdominal wall just to the right of midline. There was spontaneous return of bloody fluid. 1.25 L of fluid was aspirated. 120 cc of bloody fluid was sent to the lab for analysis. No complications. Impression: Successful ultrasound-guided paracentesis. 1.25 L of bloody fluid was aspirated.
--- NOTE | 2017-01-31 14:21 | Gastroenterology Consultation ---
History of Present Illness - Reason for Consult Consult date: 01/31/17 decompensated cirrhosis Requesting physician: YOVANA BRADSHAW - History of Present Illness Ms Hopper is a 61 yo aaf with pmh as listed below including cirrhosis and subtotal colectomy with ostomy presenting with ascites and ams. History gathered from chart review and patient although difficult to obtain detailed history from pt. She has a prior diagnosis of cirrhosis, and past history of alcohol abuse which she reports, but no longer consumes alcohol. She presents with abd distention/ascites, and is scheduled for paracentesis. She denies having prior paracentesis. She denies gi bleeding. CT scan showed numerous cystic lesions in kidney and liver, along with multiple lesions in liver of unclear etiology. Past History Past Medical History: hypertension, renal failure, other (polycystic kidney disease, dementia) Past Surgical History: bowel surgery Social history: full code. denies: smoking, alcohol abuse (quit drinking for the last few years, but was heavy drinker previously), prescription drug abuse, IV drug use Family history: no significant family history Medications and Allergies Allergies Allergy/AdvReac Type Severity Reaction Status Date / Time Penicillins Allergy Unknown Verified 01/29/17 16:11 Active Meds: Active Medications Amlodipine Besylate (Norvasc) 10 mg PO QDAY CORA Last Admin: 01/30/17 12:42 Dose: 10 mg Heparin Sodium (Porcine) (Heparin) 5,000 unit SUB-Q Q12HR CORA Last Admin: 01/30/17 22:46 Dose: 5,000 unit Hydralazine HCl (Apresoline) 10 mg IV Q4HR PRN PRN Reason: Hypertension Last Admin: 01/30/17 12:41 Dose: 10 mg Hydromorphone HCl (Dilaudid) 0.5 mg IV Q3H PRN PRN Reason: Pain , Severe (7-10) Levofloxacin/Dextrose (Levaquin 750mg/150ml) 750 mg in 150 mls @ 100 mls/hr IV Q48HR CORA PRN Reason: Protocol Sodium Chloride (Nacl 0.9% 1000 Ml) 1,000 mls @ 50 mls/hr IV DIRECT CORA Last Admin: 01/31/17 04:34 Dose: 50 mls/hr Lactulose (Cephulac) 20 gm PO QDAY CORA Last Admin: 01/30/17 14:44 Dose: 20 gm Sodium Bicarbonate (Sodium Bicarbonate) 650 mg PO BID [facility] Review of Systems - Review of Systems ROS unobtainable: due to mental status Exam - Constitutional Vital Signs: Temp Pulse Resp BP Pulse Ox 98.5 F 96 H 20 138/93 99 01/31/17 08:10 01/31/17 08:10 01/31/17 08:10 01/31/17 08:10 01/31/17 08:10 General appearance: no acute distress, temporal muscle wasting, other ( chronically ill appearing) - EENT Eyes: PERRL, EOM intact, scleral icterus ENT: hearing intact - Neck Neck: supple - Respiratory Respiratory effort: normal Respiratory: bilateral: CTA - Cardiovascular Rhythm: regular Heart Sounds: Present: S1 & S2 Extremities: No edema - Gastrointestinal General gastrointestinal: Present: other (+ distention, ostomy, mild diffuse ttp , no r/g) - Integumentary Integumentary: Present: dry, jaundice - Neurologic Neurological: oriented to person, oriented to place - Psychiatric Psychiatric: appropriate mood/affect - Labs CBC & Chem 7: 01/31/17 05:14 01/31/17 05:14 Lab Results: Laboratory Results - last 24 hr 01/30/17 01/31/17 01/31/17 15:07 05:14 05:14 WBC 16.1 H RBC 3.62 L Hgb 9.5 L Hct 30.5 MCV 84 MCH 26 L MCHC 31 RDW 18.0 H Plt Count 237 Lymph % (Auto) 5.5 L Keith % (Auto) 5.7 Eos % (Auto) 0.0 Baso % (Auto) 0.2 Lymph # 0.9 L Keith # 0.9 H Eos # 0.0 Baso # 0.0 Seg Neutrophils % 88.6 H Seg Neutrophils # 14.3 H PT 18.7 H INR 1.48 H Sodium 138 Potassium 4.2 Chloride 101.3 Carbon Dioxide 18 L Anion Gap 23 BUN 29 H Creatinine 1.4 H Estimated GFR 46 BUN/Creatinine Ratio 21 Glucose 92 Lactic Acid Calcium 8.9 Total Bilirubin 3.80 H AST 1023 H ALT 255 H Alkaline Phosphatase 284 H Total Protein 5.2 L Albumin 2.6 L Albumin/Globulin Ratio 1.0 Hepatitis A IgM Ab Hep Bs Antigen Hep B Core IgM Ab Hepatitis C Antibody 01/31/17 01/31/17 08:23 08:23 WBC RBC Hgb Hct MCV MCH MCHC RDW Plt Count Lymph % (Auto) Keith % (Auto) Eos % (Auto) Baso % (Auto) Lymph # Keith # Eos # Baso # Seg Neutrophils % Seg Neutrophils # PT INR Sodium Potassium Chloride Carbon Dioxide Anion Gap BUN Creatinine Estimated GFR BUN/Creatinine Ratio Glucose Lactic Acid 2.40 H* Calcium Total Bilirubin AST ALT Alkaline Phosphatase Total Protein Albumin Albumin/Globulin Ratio Hepatitis A IgM Ab Non-reactive Hep Bs Antigen Non-reactive Hep B Core IgM Ab Non-reactive Hepatitis C Antibody Non-reactive - Imaging CT Scan: report reviewed Assessment and Plan 1. Decompensated cirrhosis - cirrhosis etiology likely from past h/o alcohol abuse. viral hep serologies neg. also appears to have PCKD which may be contributing. -lactulose and rifaximin given HE -limit sedating medications -will need eventual egd for varices screening (inpt vs outpt) 2. Ascites - paracentesis planned for today, fluid analysis to r/o SBP and send for cytology given concern for possible neoplastic process based on CT findings 3. Liver lesions of unclear etiology - will check AFP level. likely will need MRI/MRCP for further characterization of lesions.
[2017-01-31 16:03] LABS: Albumin 2.4 g/dL (3.9-5); Albumin/Globulin Ratio 0.8 %; Bilirubin,Direct 3.1 mg/dL (0-0.2); Bilirubin,Indirect 0.8 mg/dL; Bilirubin,Total 3.9 mg/dL (0.1-1.2); Total Protein 5.6 g/dL (6.3-8.2)
[2017-01-31 17:28] LABS: Eosinophils Body Fluid 0 %; Reactive Lymph Body Fluid 0 %
[2017-01-31 17:29] LABS: Basophils Body Fluid 0 %
[2017-01-31] MEDS: APRESOLINE IV PRN (17:35)
[2017-01-31] MEDS: DILAUDID IV PRN (17:47)
[2017-02-01] MEDS: NACL 0.9% 1000 ML 1,000 ML IV SCH ×2 (00:24→22:21)
[2017-02-01 07:19] LABS: Hematocrit 31.5 % (30.3-42.9); Mean Corpuscular HGB Conc 32 % (30-34); Mean Corpuscular Hemoglobin 27 pg (28-32); Mean Corpuscular Volume 85 fl (79-97); Platelet Count 177 K/mm3 (140-440); Red Blood Count 3.72 M/mm3 (3.65-5.03); Red Cell Distribution Width 18.4 % (13.2-15.2); White Blood Count 10.6 K/mm3 (4.5-11.0)
[2017-02-01 07:29] LABS: Albumin 2.3 g/dL (3.9-5); Albumin/Globulin Ratio 0.7 %; Bilirubin,Total 4.3 mg/dL (0.1-1.2); Calcium 8.4 mg/dL (8.4-10.2); Chloride 97.8 mmol/L (98-107); Potassium 4.5 mmol/L (3.6-5.0); Total Protein 5.5 g/dL (6.3-8.2)
--- NOTE | 2017-02-01 08:23 | Procedure Note ---
Date of procedure: 01/31/17 Pre-op diagnosis: ascites Post-op diagnosis: other (hemoperitoneum) Procedure: US paracentesis Anesthesia: local Surgeon: VALDO IGLESIAS Estimated blood loss: none Pathology: list (120cc) Specimen disposition: to lab Condition: stable Disposition: floor
[2017-02-01] MEDS: SODIUM BICARBONATE PO SCH ×2 (11:32→22:22)
[2017-02-01] MEDS: CEPHULAC PO SCH (11:32)
[2017-02-01] MEDS: HEPARIN SUB-Q SCH ×2 (11:32→22:25)
[2017-02-01] MEDS: NORVASC PO SCH (11:34)
--- NOTE | 2017-02-01 12:04 | Gastroenterology Progress Note ---
Assessment and Plan 1. Decompensated cirrhosis - cirrhosis etiology likely from past h/o alcohol abuse. viral hep serologies neg. also appears to have PCKD which may be contributing. -continue supportive care -will need eventual egd for varices screening (inpt vs outpt) 2. Ascites - s/p paracentesis yesterday, cytology pending given concern for possible neoplastic process based on CT findings 3. Liver lesions of unclear etiology - AFT level pending. will order MRI/MRCP for further characterization of lesions. Subjective Date of service: 02/01/17 Principal diagnosis: cirrhosis Interval history: Patient resting in bed. No acute distress or events overnight. States her abd feels better today s/p paracentesis yesterday. Denies abd pain or N/V. Tolerating clear liquids. Objective - Constitutional Vitals: Temp Pulse Resp BP Pulse Ox 97.7 F 100 H 18 154/100 97 02/01/17 07:35 02/01/17 07:35 02/01/17 07:35 02/01/17 11:34 02/01/17 03:28 General appearance: no acute distress - EENT Eyes: PERRL, EOM intact ENT: hearing intact - Respiratory Respiratory: bilateral: CTA - Cardiovascular Rhythm: other (tachycardia) Heart Sounds: Present: S1 & S2 - Gastrointestinal General gastrointestinal: Present: soft, tender (TTP in RUQ), distended (mildly) , normal bowel sounds, other (hard mass like lesion palpable in RUQ, colostomy in LLQ) - Integumentary Integumentary: Present: warm, dry - Labs CBC & Chem 7: 02/01/17 06:27 02/01/17 06:27 Labs: Laboratory Results - last 24 hr 01/30/17 01/31/17 02/01/17 Unknown 15:36 06:27 WBC 10.6 RBC 3.72 Hgb 10.0 L Hct 31.5 MCV 85 MCH 27 L MCHC 32 RDW 18.4 H Plt Count 177 Sodium Potassium Chloride Carbon Dioxide Anion Gap BUN Creatinine Estimated GFR BUN/Creatinine Ratio Glucose Calcium Total Bilirubin 3.90 H Direct Bilirubin 3.1 H Indirect Bilirubin 0.8 AST 850 H ALT 247 H Alkaline Phosphatase 325 H Total Protein 5.6 L Albumin 2.4 L Albumin/Globulin Ratio 0.8 Fluid Type Ascitic Fluid Color Bloody Fluid Appearance Turbid Fluid WBC 75914 Fluid RBC 443777 Fluid Seg Neutrophils 54.0 Fluid Lymphocytes 36.0 Fluid Reactive Lymphs 0 Fluid Monocytes 10.0 Fluid Eosinophils 0 Fluid Basophils 0 02/01/17 06:27 WBC RBC Hgb Hct MCV MCH MCHC RDW Plt Count Sodium 133 L Potassium 4.5 Chloride 97.8 L Carbon Dioxide 15 L Anion Gap 25 BUN 32 H Creatinine 1.5 H Estimated GFR 43 BUN/Creatinine Ratio 21 Glucose 148 H Calcium 8.4 Total Bilirubin 4.30 H Direct Bilirubin Indirect Bilirubin AST 1637 H ALT 424 H Alkaline Phosphatase 350 H Total Protein 5.5 L Albumin 2.3 L Albumin/Globulin Ratio 0.7 Fluid Type Fluid Color Fluid Appearance Fluid WBC Fluid RBC Fluid Seg Neutrophils Fluid Lymphocytes Fluid Reactive Lymphs Fluid Monocytes Fluid Eosinophils Fluid Basophils
--- NOTE | 2017-02-01 14:38 | Progress Note ---
Assessment and Plan 1. Acute kidney injury: ANGELLA superimposed on CKD in the setting of volume depletion. Renal function is remains fairly stable. Continue IV fluids. Monitor renal function. 2. Metabolic acidosis: On Sodium bicarbonate. 3. Polycystic kidney disease. 4. Liver masses. 5. Sepsis. 6. Elevated Liver enzymes. 7. Anemia. Subjective Date of service: 02/01/17 Principal diagnosis: cirrhosis Interval history: Patient is doing ok. Objective - Vital Signs Vital signs: Vital Signs - 12hr 02/01/17 02/01/17 02/01/17 03:28 07:35 11:34 Temperature 98.1 F 97.7 F Pulse Rate 97 H 100 H Respiratory 26 H 18 Rate Blood Pressure 143/98 154/100 Blood Pressure 154/106 [Right] O2 Sat by Pulse 97 Oximetry 02/01/17 11:42 Temperature 97.9 F Pulse Rate 98 H Respiratory 20 Rate Blood Pressure Blood Pressure 158/104 [Right] O2 Sat by Pulse Oximetry - General Appearance General appearance: well-developed, appears stated age, other (no distress) EENT: ATNC, PERRL, hearing intact, vision intact Neck: supple Respiratory: Present: Clear to Ascultation Cardiology: regular, S1S2, no murmurs Gastrointestinal: tenderness, distended, masses, other (ostomy noted) Integumentary: no rash Neurologic: no focal deficit, no asterixis Musculoskeletal: other (no edema) Psychiatric: mood/affect appropriate, cooperative - Lab 02/01/17 06:27 02/01/17 06:27 Most recent lab results Calcium 8.4 mg/dL (8.4-10.2) 02/01/17 06:27 Magnesium 2.00 mg/dL (1.7-2.3) 01/29/17 20:24
--- NOTE | 2017-02-01 15:29 | Progress Note ---
Assessment and Plan Assessment and plan: Patient is a 61-year-old woman with a history of hypertension, polycystic kidney disease, dementia, liver disease, renal failure, status post colostomy who presented to [facility] with complaints of not eating and drinking and abdominal pains Patient has been a heavy drinker for years but sober for the last few years. Ascites with liver mass, suspected Liver Cancer s/p diagnostic paracentesis : await cytology, if liver cancer, patient should be hospice Severe malnutritution, poa: consult [employer], GI is following Alcohol Liver Cirrhosis with Ascites: GI is following Lactulose for amonia levels and altered mental status. Sc heparin placed on hold pendiing diagnostic procedure MRI/MRA pending, AFT pending Monitor: CBC, CMP, Ammonia Levels Acute encephalopathy, suspected hepatic in nature, poa: treat with lactulose Accelerated Hypertension: Continue antihypertensive medication, Amlodipine and IV Hydralazine PRN. Polycystic Kidney Disease with acute to chronic CKD 3, due to vasomotor nephropathy, poa: Nephrology following Metabolic acidosis due to Renal failure: treat with sodium bicarbonate, renal is following Sepsis due to suspected peritionitis, poa, wbc normal now: Continue ABX therapy , awaiting culture results DVT prophylaxis: add sq heparin History Interval history: Patient was seen and examined. Follow-up on current diagnosis/abdominal pain which is still present. Overnight uneventful. Patient denies any chest pain, shortness breath, nausea/vomiting or severe headaches. Imaging, nursing note, chart, labs and old chart reviewed. Discussed with patient. Hospitalist Physical - Physical exam Narrative exam: GEN: ill appearing, awake alert orientated x 2, missed year HEENT: NCAT, EOMI, PERRL, OP Clear NECK: supple, no adenopathy, no thyromegaly, no JVD CVS/HEART: regular tachy, NORMAL S1S2, NO JVD, pulses present bilaterally CHEST/LUNGS: CTA B, Symmetrical chest expansion, good air entry bilaterally GI/Abdomen: tense, distended, colostomy with bowel protuding thru orifice, + bowel sounds, /Bladder: no suprapubic tenderness, no CVA or paraspinal tenderness EXT/Skin: no new rash, +sclera icterus MSK: FROM x 4 Neuro: CN 2-12 grossly intact, no new focal deficits Psych: calm - Constitutional Vitals: Temp Pulse Resp BP Pulse Ox 97.9 F 98 H 20 158/104 97 02/01/17 11:42 02/01/17 11:42 02/01/17 11:42 02/01/17 11:42 02/01/17 03:28 Results - Labs CBC & Chem 7: 02/01/17 06:27 02/01/17 06:27 Labs: Laboratory Last Values WBC 10.6 K/mm3 (4.5-11.0) 02/01/17 06:27 RBC 3.72 M/mm3 (3.65-5.03) 02/01/17 06:27 Hgb 10.0 gm/dl (10.1-14.3) L 02/01/17 06:27 Hct 31.5 % (30.3-42.9) 02/01/17 06:27 MCV 85 fl (79-97) 02/01/17 06:27 MCH 27 pg (28-32) L 02/01/17 06:27 MCHC 32 % (30-34) 02/01/17 06:27 RDW 18.4 % (13.2-15.2) H 02/01/17 06:27 Plt Count 177 K/mm3 (140-440) 02/01/17 06:27 Lymph % (Auto) 5.5 % (13.4-35.0) L 01/31/17 05:14 [place] % (Auto) 5.7 % (0.0-7.3) 01/31/17 05:14 Eos % (Auto) 0.0 % (0.0-4.3) 01/31/17 05:14 Baso % (Auto) 0.2 % (0.0-1.8) 01/31/17 05:14 Lymph # 0.9 K/mm3 (1.2-5.4) L 01/31/17 05:14 [place] # 0.9 K/mm3 (0.0-0.8) H 01/31/17 05:14 Eos # 0.0 K/mm3 (0.0-0.4) 01/31/17 05:14 Baso # 0.0 K/mm3 (0.0-0.1) 01/31/17 05:14 Add Manual Diff Complete 01/30/17 07:46 Total Counted 100 01/30/17 07:46 Seg Neutrophils % 88.6 % (40.0-70.0) H 01/31/17 05:14 Seg Neuts % (Manual) 91.0 % (40.0-70.0) H 01/30/17 07:46 Band Neutrophils % 0 % 01/30/17 07:46 Lymphocytes % (Manual) 3.0 % (13.4-35.0) L 01/30/17 07:46 Reactive Lymphs % (Man) 0 % 01/30/17 07:46 Monocytes % (Manual) 6.0 % (0.0-7.3) 01/30/17 07:46 Eosinophils % (Manual) 0 % (0.0-4.3) 01/30/17 07:46 Basophils % (Manual) 0 % (0.0-1.8) 01/30/17 07:46 Metamyelocytes % 0 % 01/30/17 07:46 Myelocytes % 0 % 01/30/17 07:46 Promyelocytes % 0 % 01/30/17 07:46 Blast Cells % 0 % 01/30/17 07:46 Nucleated RBC % Not Reportable 01/30/17 07:46 Seg Neutrophils # 14.3 K/mm3 (1.8-7.7) H 01/31/17 05:14 Seg Neutrophils # Man 15.5 K/mm3 (1.8-7.7) H 01/30/17 07:46 Band Neutrophils # 0.0 K/mm3 01/30/17 07:46 Lymphocytes # (Manual) 0.5 K/mm3 (1.2-5.4) L 01/30/17 07:46 Abs React Lymphs (Man) 0.0 K/mm3 01/30/17 07:46 Monocytes # (Manual) 1.0 K/mm3 (0.0-0.8) H 01/30/17 07:46 Eosinophils # (Manual) 0.0 K/mm3 (0.0-0.4) 01/30/17 07:46 Basophils # (Manual) 0.0 K/mm3 (0.0-0.1) 01/30/17 07:46 Metamyelocytes # 0.0 K/mm3 01/30/17 07:46 Myelocytes # 0.0 K/mm3 01/30/17 07:46 Promyelocytes # 0.0 K/mm3 01/30/17 07:46 Blast Cells # 0.0 K/mm3 01/30/17 07:46 WBC Morphology Not Reportable 01/30/17 07:46 Hypersegmented Neuts Not Reportable 01/30/17 07:46 Hyposegmented Neuts Not Reportable 01/30/17 07:46 Hypogranular Neuts Not Reportable 01/30/17 07:46 Smudge Cells Not Reportable 01/30/17 07:46 Toxic Granulation Not Reportable 01/30/17 07:46 Toxic Vacuolation Not Reportable 01/30/17 07:46 Dohle Bodies Not Reportable 01/30/17 07:46 Pelger-Huet Anomaly Not Reportable 01/30/17 07:46 Иван Rods Not Reportable 01/30/17 07:46 Platelet Estimate Consistent w auto 01/30/17 07:46 Clumped Platelets Not Reportable 01/30/17 07:46 Plt Clumps, EDTA Not Reportable 01/30/17 07:46 Large Platelets Not Reportable 01/30/17 07:46 Giant Platelets Not Reportable 01/30/17 07:46 Platelet Satelliting Not Reportable 01/30/17 07:46 Plt Morphology Comment Not Reportable 01/30/17 07:46 RBC Morphology Not Reportable 01/30/17 07:46 Dimorphic RBCs Not Reportable 01/30/17 07:46 Polychromasia Not Reportable 01/30/17 07:46 Hypochromasia Not Reportable 01/30/17 07:46 Poikilocytosis Few 01/30/17 07:46 Anisocytosis 1+ 01/30/17 07:46 Microcytosis Not Reportable 01/30/17 07:46 Macrocytosis Few 01/30/17 07:46 Spherocytes Not Reportable 01/30/17 07:46 Pappenheimer Bodies Not Reportable 01/30/17 07:46 Sickle Cells Not Reportable 01/30/17 07:46 Target Cells Not Reportable 01/30/17 07:46 Tear Drop Cells Not Reportable 01/30/17 07:46 Ovalocytes Not Reportable 01/30/17 07:46 Helmet Cells Not Reportable 01/30/17 07:46 Traylor-Ronceverte Bodies Not Reportable 01/30/17 07:46 Purcell Rings Not Reportable 01/30/17 07:46 Vinnie Cells Few 01/30/17 07:46 Bite Cells Not Reportable 01/30/17 07:46 Crenated Cell Not Reportable 01/30/17 07:46 Elliptocytes Not Reportable 01/30/17 07:46 Acanthocytes (Spur) Not Reportable 01/30/17 07:46 Rouleaux Not Reportable 01/30/17 07:46 Hemoglobin C Crystals Not Reportable 01/30/17 07:46 Schistocytes Not Reportable 01/30/17 07:46 Malaria parasites Not Reportable 01/30/17 07:46 Sandro Bodies Not Reportable 01/30/17 07:46 Hem Pathologist Commnt No 01/30/17 07:46 PT 18.7 Sec. (12.2-14.9) H 01/30/17 15:07 INR 1.48 (0.87-1.13) H 01/30/17 15:07 APTT 33.5 Sec. (24.2-36.6) 01/29/17 16:18 Sodium 133 mmol/L (137-145) L 02/01/17 06:27 Potassium 4.5 mmol/L (3.6-5.0) 02/01/17 06:27 Chloride 97.8 mmol/L (98-107) L 02/01/17 06:27 Carbon Dioxide 15 mmol/L (22-30) L 02/01/17 06:27 Anion Gap 25 mmol/L 02/01/17 06:27 BUN 32 mg/dL (7-17) H 02/01/17 06:27 Creatinine 1.5 mg/dL (0.7-1.2) H 02/01/17 06:27 Estimated GFR 43 ml/min 02/01/17 06:27 BUN/Creatinine Ratio 21 % 02/01/17 06:27 Glucose 148 mg/dL (65-100) H 02/01/17 06:27 Lactic Acid 2.40 mmol/L (0.7-2.0) H* 01/31/17 08:23 Calcium 8.4 mg/dL (8.4-10.2) 02/01/17 06:27 Magnesium 2.00 mg/dL (1.7-2.3) 01/29/17 20:24 Total Bilirubin 4.30 mg/dL (0.1-1.2) H 02/01/17 06:27 Direct Bilirubin 3.1 mg/dL (0-0.2) H 01/31/17 15:36 Indirect Bilirubin 0.8 mg/dL 01/31/17 15:36 AST 1637 units/L (5-40) H 02/01/17 06:27 ALT 424 units/L (7-56) H 02/01/17 06:27 Alkaline Phosphatase 350 units/L (35-129) H 02/01/17 06:27 Ammonia 46.0 umol/L (25-60) 01/29/17 19:28 Total Creatine Kinase 188 units/L (30-135) H 01/30/17 07:46 NT-Pro-B Natriuret Pep 1747 pg/mL (0-900) H 01/29/17 16:19 Total Protein 5.5 g/dL (6.3-8.2) L 02/01/17 06:27 Albumin 2.3 g/dL (3.9-5) L 02/01/17 06:27 Albumin/Globulin Ratio 0.7 % 02/01/17 06:27 Lipase 39 units/L (13-60) 01/29/17 16:19 Urine Color Yellow (Yellow) 01/29/17 17:44 Urine Turbidity Clear (Clear) 01/29/17 17:44 Urine pH 5.0 (5.0-7.0) 01/29/17 17:44 Ur Specific [place] 1.009 (1.003-1.030) 01/29/17 17:44 Urine Protein <15 mg/dl mg/dL (Negative) 01/29/17 17:44 Urine Glucose (UA) Neg mg/dL (Negative) 01/29/17 17:44 Urine Ketones Neg mg/dL (Negative) 01/29/17 17:44 Urine Blood Neg (Negative) 01/29/17 17:44 Urine Nitrite Neg (Negative) 01/29/17 17:44 Urine Bilirubin Neg (Negative) 01/29/17 17:44 Urine Urobilinogen < 2.0 mg/dL (<2.0) 01/29/17 17:44 Ur Leukocyte Esterase Neg (Negative) 01/29/17 17:44 Urine WBC (Auto) 0.0 /HPF (0.0-6.0) 01/29/17 17:44 Urine RBC (Auto) < 1.0 /HPF (0.0-6.0) 01/29/17 17:44 Fluid Type Ascitic 01/30/17 Unknown Fluid Color Bloody 01/30/17 Unknown Fluid Appearance Turbid 01/30/17 Unknown Fluid WBC 19777 /mm3 01/30/17 Unknown Fluid RBC 320374 /mm3 01/30/17 Unknown Fluid Seg Neutrophils 54.0 % 01/30/17 Unknown Fluid Lymphocytes 36.0 % 01/30/17 Unknown Fluid Reactive Lymphs 0 % 01/30/17 Unknown Fluid Monocytes 10.0 % 01/30/17 Unknown Fluid Eosinophils 0 % 01/30/17 Unknown Fluid Basophils 0 % 01/30/17 Unknown Hepatitis A IgM Ab Non-reactive (NonReactive) 01/31/17 08:23 Hep Bs Antigen Non-reactive (Negative) 01/31/17 08:23 Hep B Core IgM Ab Non-reactive (NonReactive) 01/31/17 08:23 Hepatitis C Antibody Non-reactive (NonReactive) 01/31/17 08:23 Blood Type B POSITIVE 01/29/17 16:35 Antibody Screen Negative 01/29/17 16:35
[2017-02-02 06:15] LABS: Hematocrit 30.1 % (30.3-42.9); Hemoglobin 9.6 gm/dl (10.1-14.3); Mean Corpuscular HGB Conc 32 % (30-34); Mean Corpuscular Hemoglobin 27 pg (28-32); Mean Corpuscular Volume 84 fl (79-97); Platelet Count 126 K/mm3 (140-440); White Blood Count 9.1 K/mm3 (4.5-11.0)
[2017-02-02 06:39] LABS: Albumin 2.3 g/dL (3.9-5); Albumin/Globulin Ratio 0.8 %; Bilirubin,Total 5.9 mg/dL (0.1-1.2); Calcium 8.3 mg/dL (8.4-10.2); Chloride 98.5 mmol/L (98-107); Phosphorous 4.4 mg/dL (2.5-4.5); Potassium 4.4 mmol/L (3.6-5.0); Total Protein 5.3 g/dL (6.3-8.2)
--- NOTE | 2017-02-02 08:21 | Progress Note ---
Assessment and Plan 1. Renal Insufficiency: Likely CKD stage 3 secondary to polycystic kidney disease. Renal function is remains fairly stable. Monitor renal function. 2. Hyponatremia: Sod. bicarbonate dose was increased. Follow Sodium level. 3. Metabolic acidosis: On Sodium bicarbonate. 4. Polycystic kidney disease. 5. Liver masses. 6. Sepsis. 7. Elevated Liver enzymes. 8. Anemia. Subjective Date of service: 02/02/17 Principal diagnosis: cirrhosis Interval history: Patient is doing ok. Objective - Vital Signs Vital signs: Vital Signs - 12hr 02/02/17 02/02/17 02/02/17 00:25 00:30 00:34 Temperature 99.9 F H Pulse Rate 110 H 107 H Respiratory 20 Rate Blood Pressure 146/100 Blood Pressure 149/103 [Right] O2 Sat by Pulse Oximetry 02/02/17 02:11 Temperature 97.9 F Pulse Rate 106 H Respiratory 20 Rate Blood Pressure 144/98 Blood Pressure [Right] O2 Sat by Pulse 96 Oximetry - General Appearance General appearance: well-developed, appears stated age, other (no distress) EENT: ATNC, PERRL, hearing intact, vision intact Neck: supple Respiratory: Present: Clear to Ascultation Cardiology: regular, S1S2, no murmurs Gastrointestinal: normoactive bowel sounds, no tenderness, distended, other ( ostomy noted, hard mass palpable) Integumentary: no rash, warm and dry Neurologic: no focal deficit, no asterixis Musculoskeletal: other (no edema) Psychiatric: mood/affect appropriate, cooperative - Lab 02/02/17 05:44 02/02/17 05:44 Most recent lab results Calcium 8.3 mg/dL (8.4-10.2) L 02/02/17 05:44 Phosphorus 4.40 mg/dL (2.5-4.5) 02/02/17 05:44 Magnesium 2.00 mg/dL (1.7-2.3) 01/29/17 20:24
[2017-02-02] MEDS: HEPARIN SUB-Q SCH ×2 (09:53→21:58)
--- NOTE | 2017-02-02 12:00 | Progress Note ---
Assessment and Plan Assessment and plan: Patient is a 61-year-old woman with a history of hypertension, polycystic kidney disease, dementia, liver disease, renal failure, status post colostomy who presented to [facility] ED with complaints of not eating and drinking and abdominal pains Patient has been a heavy drinker for years but sober for the last few years. Ascites with liver mass, suspected Liver Cancer s/p diagnostic paracentesis : await cytology, if liver cancer, patient should be hospice Severe malnutritution, poa: consult Search Engine Optimization Specialist, GI is following Alcohol Liver Cirrhosis with Ascites: GI is following Lactulose for amonia levels and altered mental status. Sc heparin placed on hold pendiing diagnostic procedure MRI/MRA pending, AFT pending Monitor: CBC, CMP, Ammonia Levels Acute encephalopathy, suspected hepatic in nature, poa: treat with lactulose Accelerated Hypertension: Continue antihypertensive medication, Amlodipine and IV Hydralazine PRN. Polycystic Kidney Disease with acute to chronic CKD 3, due to vasomotor nephropathy, poa: Nephrology following Metabolic acidosis due to Renal failure: treat with sodium bicarbonate, renal is following Sepsis due to suspected peritionitis, poa, wbc normal now: Continue ABX therapy , awaiting culture results DVT prophylaxis: add sq heparin Her abdomen is more tight and distended today, she is tachycardic. Spoke with Dr. Geiger, the rn concurrent review, for possible admission to ICU. He recommends that I call GI for another therapeutic paracentesis. So, called and spoke GI, Dr. Mejía==>will proceed with paracentesis and Dr. Robles will see today. History Interval history: Patient was seen and examined. Follow-up on current diagnosis/abdominal pain which is still present. Overnight she was placed in roll belt restraints. Her abdomen is more distended and tight. Patient denies any chest pain, shortness breath, nausea/vomiting or severe headaches. Imaging, nursing note, chart, labs and old chart reviewed. Discussed with patient. Hospitalist Physical - Physical exam Narrative exam: GEN: ill appearing, awake alert orientated x 2, missed year HEENT: NCAT, EOMI, PERRL, OP Clear NECK: supple, no adenopathy, no thyromegaly, no JVD CVS/HEART: regular tachy, NORMAL S1S2, NO JVD, pulses present bilaterally CHEST/LUNGS: CTA B, Symmetrical chest expansion, good air entry bilaterally GI/Abdomen: more tense, distended, colostomy with bowel protuding thru orifice, +bowel sounds, /Bladder: no suprapubic tenderness, no CVA or paraspinal tenderness EXT/Skin: no new rash, +sclera icterus MSK: FROM x 4 Neuro: CN 2-12 grossly intact, no new focal deficits Psych: calm - Constitutional Vitals: Temp Pulse Resp BP Pulse Ox 98.5 F 108 H 18 131/94 97 02/02/17 07:26 02/02/17 07:26 02/02/17 07:26 02/02/17 07:26 02/02/17 07:26 General appearance: Present: mild distress Results - Labs CBC & Chem 7: 02/02/17 05:44 02/02/17 05:44 Labs: Laboratory Last Values WBC 9.1 K/mm3 (4.5-11.0) 02/02/17 05:44 RBC 3.60 M/mm3 (3.65-5.03) L 02/02/17 05:44 Hgb 9.6 gm/dl (10.1-14.3) L 02/02/17 05:44 Hct 30.1 % (30.3-42.9) L 02/02/17 05:44 MCV 84 fl (79-97) 02/02/17 05:44 MCH 27 pg (28-32) L 02/02/17 05:44 MCHC 32 % (30-34) 02/02/17 05:44 RDW 19.0 % (13.2-15.2) H 02/02/17 05:44 Plt Count 126 K/mm3 (140-440) L 02/02/17 05:44 Lymph % (Auto) 5.5 % (13.4-35.0) L 01/31/17 05:14 [place] % (Auto) 5.7 % (0.0-7.3) 01/31/17 05:14 Eos % (Auto) 0.0 % (0.0-4.3) 01/31/17 05:14 Baso % (Auto) 0.2 % (0.0-1.8) 01/31/17 05:14 Lymph # 0.9 K/mm3 (1.2-5.4) L 01/31/17 05:14 [place] # 0.9 K/mm3 (0.0-0.8) H 01/31/17 05:14 Eos # 0.0 K/mm3 (0.0-0.4) 01/31/17 05:14 Baso # 0.0 K/mm3 (0.0-0.1) 01/31/17 05:14 Add Manual Diff Complete 01/30/17 07:46 Total Counted 100 01/30/17 07:46 Seg Neutrophils % 88.6 % (40.0-70.0) H 01/31/17 05:14 Seg Neuts % (Manual) 91.0 % (40.0-70.0) H 01/30/17 07:46 Band Neutrophils % 0 % 01/30/17 07:46 Lymphocytes % (Manual) 3.0 % (13.4-35.0) L 01/30/17 07:46 Reactive Lymphs % (Man) 0 % 01/30/17 07:46 Monocytes % (Manual) 6.0 % (0.0-7.3) 01/30/17 07:46 Eosinophils % (Manual) 0 % (0.0-4.3) 01/30/17 07:46 Basophils % (Manual) 0 % (0.0-1.8) 01/30/17 07:46 Metamyelocytes % 0 % 01/30/17 07:46 Myelocytes % 0 % 01/30/17 07:46 Promyelocytes % 0 % 01/30/17 07:46 Blast Cells % 0 % 01/30/17 07:46 Nucleated RBC % Not Reportable 01/30/17 07:46 Seg Neutrophils # 14.3 K/mm3 (1.8-7.7) H 01/31/17 05:14 Seg Neutrophils # Man 15.5 K/mm3 (1.8-7.7) H 01/30/17 07:46 Band Neutrophils # 0.0 K/mm3 01/30/17 07:46 Lymphocytes # (Manual) 0.5 K/mm3 (1.2-5.4) L 01/30/17 07:46 Abs React Lymphs (Man) 0.0 K/mm3 01/30/17 07:46 Monocytes # (Manual) 1.0 K/mm3 (0.0-0.8) H 01/30/17 07:46 Eosinophils # (Manual) 0.0 K/mm3 (0.0-0.4) 01/30/17 07:46 Basophils # (Manual) 0.0 K/mm3 (0.0-0.1) 01/30/17 07:46 Metamyelocytes # 0.0 K/mm3 01/30/17 07:46 Myelocytes # 0.0 K/mm3 01/30/17 07:46 Promyelocytes # 0.0 K/mm3 01/30/17 07:46 Blast Cells # 0.0 K/mm3 01/30/17 07:46 WBC Morphology Not Reportable 01/30/17 07:46 Hypersegmented Neuts Not Reportable 01/30/17 07:46 Hyposegmented Neuts Not Reportable 01/30/17 07:46 Hypogranular Neuts Not Reportable 01/30/17 07:46 Smudge Cells Not Reportable 01/30/17 07:46 Toxic Granulation Not Reportable 01/30/17 07:46 Toxic Vacuolation Not Reportable 01/30/17 07:46 Dohle Bodies Not Reportable 01/30/17 07:46 Pelger-Huet Anomaly Not Reportable 01/30/17 07:46 Иван Rods Not Reportable 01/30/17 07:46 Platelet Estimate Consistent w auto 01/30/17 07:46 Clumped Platelets Not Reportable 01/30/17 07:46 Plt Clumps, EDTA Not Reportable 01/30/17 07:46 Large Platelets Not Reportable 01/30/17 07:46 Giant Platelets Not Reportable 01/30/17 07:46 Platelet Satelliting Not Reportable 01/30/17 07:46 Plt Morphology Comment Not Reportable 01/30/17 07:46 RBC Morphology Not Reportable 01/30/17 07:46 Dimorphic RBCs Not Reportable 01/30/17 07:46 Polychromasia Not Reportable 01/30/17 07:46 Hypochromasia Not Reportable 01/30/17 07:46 Poikilocytosis Few 01/30/17 07:46 Anisocytosis 1+ 01/30/17 07:46 Microcytosis Not Reportable 01/30/17 07:46 Macrocytosis Few 01/30/17 07:46 Spherocytes Not Reportable 01/30/17 07:46 Pappenheimer Bodies Not Reportable 01/30/17 07:46 Sickle Cells Not Reportable 01/30/17 07:46 Target Cells Not Reportable 01/30/17 07:46 Tear Drop Cells Not Reportable 01/30/17 07:46 Ovalocytes Not Reportable 01/30/17 07:46 Helmet Cells Not Reportable 01/30/17 07:46 [place] Bodies Not Reportable 01/30/17 07:46 [place] Rings Not Reportable 01/30/17 07:46 [place] Cells Few 01/30/17 07:46 Bite Cells Not Reportable 01/30/17 07:46 Crenated Cell Not Reportable 01/30/17 07:46 Elliptocytes Not Reportable 01/30/17 07:46 Acanthocytes (Spur) Not Reportable 01/30/17 07:46 Rouleaux Not Reportable 01/30/17 07:46 Hemoglobin C Crystals Not Reportable 01/30/17 07:46 Schistocytes Not Reportable 01/30/17 07:46 Malaria parasites Not Reportable 01/30/17 07:46 Sandro Bodies Not Reportable 01/30/17 07:46 Hem Pathologist Commnt No 01/30/17 07:46 PT 18.7 Sec. (12.2-14.9) H 01/30/17 15:07 INR 1.48 (0.87-1.13) H 01/30/17 15:07 APTT 33.5 Sec. (24.2-36.6) 01/29/17 16:18 Sodium 131 mmol/L (137-145) L 02/02/17 05:44 Potassium 4.4 mmol/L (3.6-5.0) 02/02/17 05:44 Chloride 98.5 mmol/L (98-107) 02/02/17 05:44 Carbon Dioxide 14 mmol/L (22-30) L 02/02/17 05:44 Anion Gap 23 mmol/L 02/02/17 05:44 BUN 33 mg/dL (7-17) H 02/02/17 05:44 Creatinine 1.4 mg/dL (0.7-1.2) H 02/02/17 05:44 Estimated GFR 46 ml/min 02/02/17 05:44 BUN/Creatinine Ratio 24 % 02/02/17 05:44 Glucose 73 mg/dL (65-100) 02/02/17 05:44 Lactic Acid 2.40 mmol/L (0.7-2.0) H* 01/31/17 08:23 Calcium 8.3 mg/dL (8.4-10.2) L 02/02/17 05:44 Phosphorus 4.40 mg/dL (2.5-4.5) 02/02/17 05:44 Magnesium 2.00 mg/dL (1.7-2.3) 01/29/17 20:24 Total Bilirubin 5.90 mg/dL (0.1-1.2) H 02/02/17 05:44 Direct Bilirubin 3.1 mg/dL (0-0.2) H 01/31/17 15:36 Indirect Bilirubin 0.8 mg/dL 01/31/17 15:36 AST 1440 units/L (5-40) H 02/02/17 05:44 ALT 447 units/L (7-56) H 02/02/17 05:44 Alkaline Phosphatase 444 units/L (35-129) H 02/02/17 05:44 Ammonia 46.0 umol/L (25-60) 01/29/17 19:28 Total Creatine Kinase 188 units/L (30-135) H 01/30/17 07:46 NT-Pro-B Natriuret Pep 1747 pg/mL (0-900) H 01/29/17 16:19 Total Protein 5.3 g/dL (6.3-8.2) L 02/02/17 05:44 Albumin 2.3 g/dL (3.9-5) L 02/02/17 05:44 Albumin/Globulin Ratio 0.8 % 02/02/17 05:44 Lipase 39 units/L (13-60) 01/29/17 16:19 Urine Color Yellow (Yellow) 01/29/17 17:44 Urine Turbidity Clear (Clear) 01/29/17 17:44 Urine pH 5.0 (5.0-7.0) 01/29/17 17:44 Ur Specific [place] 1.009 (1.003-1.030) 01/29/17 17:44 Urine Protein <15 mg/dl mg/dL (Negative) 01/29/17 17:44 Urine Glucose (UA) Neg mg/dL (Negative) 01/29/17 17:44 Urine Ketones Neg mg/dL (Negative) 01/29/17 17:44 Urine Blood Neg (Negative) 01/29/17 17:44 Urine Nitrite Neg (Negative) 01/29/17 17:44 Urine Bilirubin Neg (Negative) 01/29/17 17:44 Urine Urobilinogen < 2.0 mg/dL (<2.0) 01/29/17 17:44 Ur Leukocyte Esterase Neg (Negative) 01/29/17 17:44 Urine WBC (Auto) 0.0 /HPF (0.0-6.0) 01/29/17 17:44 Urine RBC (Auto) < 1.0 /HPF (0.0-6.0) 01/29/17 17:44 Fluid Type Ascitic 01/30/17 Unknown Fluid Color Bloody 01/30/17 Unknown Fluid Appearance Turbid 01/30/17 Unknown Fluid WBC 94595 /mm3 01/30/17 Unknown Fluid RBC 083779 /mm3 01/30/17 Unknown Fluid Seg Neutrophils 54.0 % 01/30/17 Unknown Fluid Lymphocytes 36.0 % 01/30/17 Unknown Fluid Reactive Lymphs 0 % 01/30/17 Unknown Fluid Monocytes 10.0 % 01/30/17 Unknown Fluid Eosinophils 0 % 01/30/17 Unknown Fluid Basophils 0 % 01/30/17 Unknown Hepatitis A IgM Ab Non-reactive (NonReactive) 01/31/17 08:23 Hep Bs Antigen Non-reactive (Negative) 01/31/17 08:23 Hep B Core IgM Ab Non-reactive (NonReactive) 01/31/17 08:23 Hepatitis C Antibody Non-reactive (NonReactive) 01/31/17 08:23 Blood Type B POSITIVE 01/29/17 16:35 Antibody Screen Negative 01/29/17 16:35
--- NOTE | 2017-02-02 14:29 | Magnetic Resonance Report ---
MR ABDOMEN MRCP History: Liver mass Technique: Multiple T1 and T2-weighted images were obtained without contrast. Thin and thick slab MRCP imaging. Findings: Heart size is normal. There are moderate bilateral layering pleural effusions measuring up to 2.5 cm in thickness. There is small ascites throughout the abdomen. The liver and both kidneys are markedly enlarged. There are too many to count hepatic and renal cysts. No obvious hepatic mass is identified although no IV contrast was administered. A few of the renal cysts demonstrate mild hemorrhagic changes. No renal mass or obstruction. The MRCP images are severely limited secondary to the numerous cysts and ascites. No biliary dilatation is detected. No evidence for choledocholithiasis. The pancreas, spleen, adrenal glands, aorta and visualized bowel loops are unremarkable. 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 No IV contrast was administered, however, no liver mass is appreciated. Limited but grossly normal MRCP. Moderate bilateral pleural effusions and small ascites.
--- NOTE | 2017-02-02 14:36 | Ultrasound Report ---
ULTRASOUND ABDOMEN LIMITED History: Ascites Findings: The patient was brought to the ultrasound department for ultrasound guided paracentesis. Initial scanning of all 4 quadrants of the abdomen demonstrates small ascites which has decreased significantly since 01/31/17. No safe radiographic window for ultrasound-guided paracentesis was available. Impression: Small ascites. No safe radiographic window for paracentesis.
[2017-02-02] MEDS: LEVAQUIN 750MG/150ML 750 MG/150 ML BAG IV SCH (17:04)
[2017-02-02] MEDS: SODIUM BICARBONATE PO SCH ×3 (17:06→22:00)
[2017-02-02] MEDS: CEPHULAC PO SCH (17:06)
[2017-02-02] MEDS: NORVASC PO SCH (17:06)
--- NOTE | 2017-02-02 18:35 | Gastroenterology Progress Note ---
Assessment and Plan - Patient Problems (1) Polycystic liver disease Current Visit: Yes Status: Acute Plan to address problem: - Associated PKD, and the patient should be evaluated at a transplant center for further management ([place] or [place]). - She has no severe dysfunction of the kidneys yet, but they are nearly replaced with cysts; the liver is affected as well. - She has at least 2 family members on dialysis from this, but no transplants that she is aware of; as to what caused her acute decompensation (other than possible pneumonia v atalectasis on the CT), the cysts in the kidney and liver can certainly get infected. - I would continue levofloxacin for a reasonable period (?7 days), then d/c and observe clinically (outpatient), to avoid abx resistence. - No further w/u needs to be done as an inpatient at this point; may d/c if AM labs stable, and f/u with us in clinic as an outpatient. Subjective Date of service: 02/02/17 Principal diagnosis: PCKD Interval history: The patient is tolerating her liquid diet. She has no N/V, or fevers. She has good ostomy output without blood. Objective - Constitutional Vitals: Temp Pulse Resp BP Pulse Ox 98.5 F 108 H 18 142/101 97 02/02/17 07:26 02/02/17 07:26 02/02/17 07:26 02/02/17 17:06 02/02/17 07:26 General appearance: no acute distress - EENT Eyes: PERRL, EOM intact - Respiratory Respiratory effort: normal Respiratory: bilateral: CTA - Cardiovascular Rhythm: regular Heart Sounds: Present: S1 & S2 - Gastrointestinal General gastrointestinal: Present: soft, non-tender, distended (Marked hepatomegaly from cystic liver disease; Ostomy LLQ) - Labs CBC & Chem 7: 02/02/17 05:44 02/02/17 05:44 Labs: Laboratory Results - last 24 hr 02/02/17 02/02/17 02/02/17 05:44 05:44 15:03 WBC 9.1 RBC 3.60 L Hgb 9.6 L Hct 30.1 L MCV 84 MCH 27 L MCHC 32 RDW 19.0 H Plt Count 126 L Sodium 131 L Potassium 4.4 Chloride 98.5 Carbon Dioxide 14 L Anion Gap 23 BUN 33 H Creatinine 1.4 H Estimated GFR 46 BUN/Creatinine Ratio 24 Glucose 73 Calcium 8.3 L Phosphorus 4.40 Total Bilirubin 5.90 H AST 1440 H ALT 447 H Alkaline Phosphatase 444 H Ammonia 44.0 Total Protein 5.3 L Albumin 2.3 L Albumin/Globulin Ratio 0.8
[2017-02-03] MEDS: NACL 0.9% 1000 ML 1,000 ML IV SCH ×2 (03:56→22:15)
[2017-02-03 06:49] LABS: Hematocrit 30.7 % (30.3-42.9); Hemoglobin 9.8 gm/dl (10.1-14.3); Mean Corpuscular HGB Conc 32 % (30-34); Mean Corpuscular Hemoglobin 27 pg (28-32); Mean Corpuscular Volume 85 fl (79-97); Platelet Count 140 K/mm3 (140-440); Red Blood Count 3.63 M/mm3 (3.65-5.03); Red Cell Distribution Width 19.7 % (13.2-15.2); White Blood Count 8.4 K/mm3 (4.5-11.0)
[2017-02-03 06:52] LABS: INR 2.25 (0.87-1.13)
[2017-02-03 06:53] LABS: Partial Thromboplastin Time 47.1 Sec. (24.2-36.6)
[2017-02-03 07:05] LABS: Albumin/Globulin Ratio 0.7 %; Bilirubin,Total 6.2 mg/dL (0.1-1.2); Calcium 7.9 mg/dL (8.4-10.2); Chloride 101.1 mmol/L (98-107)
[2017-02-03 07:12] LABS: LDH,Body Fluid 764; Total Protein,Body Fluid < 3.0 (15.0-45.0)
--- NOTE | 2017-02-03 08:06 | Progress Note ---
Assessment and Plan 1. Renal Insufficiency: Likely CKD stage 3 secondary to polycystic kidney disease. Renal function is remains fairly stable. Monitor renal function. 2. Hyponatremia: Improving. Follow Sodium level. 3. Metabolic acidosis: Continue PO Sodium bicarbonate. 4. Polycystic kidney disease. 5. Liver masses. 6. Sepsis. 7. Elevated Liver enzymes. 8. Anemia. Will sign off. Please call with any questions. Subjective Date of service: 02/03/17 Principal diagnosis: cirrhosis Interval history: Patient is doing ok. Objective - Vital Signs Vital signs: Vital Signs - 12hr 02/02/17 22:07 Temperature 97.4 F L Pulse Rate 112 H Respiratory 18 Rate Blood Pressure 127/97 O2 Sat by Pulse 97 Oximetry - General Appearance General appearance: well-developed, appears stated age, other (thin built, no distress) EENT: ATNC, PERRL, hearing intact, vision intact Neck: supple Respiratory: Present: Clear to Ascultation Cardiology: regular, S1S2, no murmurs Gastrointestinal: normoactive bowel sounds, no tenderness, distended, masses, other (ostomy noted) Integumentary: no rash, warm and dry Neurologic: no focal deficit, no asterixis Musculoskeletal: other (no edema) Psychiatric: mood/affect appropriate - Lab 02/03/17 06:20 02/03/17 06:20 Most recent lab results Calcium 7.9 mg/dL (8.4-10.2) L 02/03/17 06:20 Phosphorus 4.40 mg/dL (2.5-4.5) 02/02/17 05:44 Magnesium 2.00 mg/dL (1.7-2.3) 01/29/17 20:24
--- NOTE | 2017-02-03 08:08 | Gastroenterology Progress Note ---
Assessment and Plan Liver: pt w/ PCKD and review of liver masses most likely polycystic liver disease - doubt malignancy - size of masses may not allow for much improvement in abdominal size - pt would need eval at tertiary center - hepatitis w/u negative - no changes from GI standpoint at this time and ok to d/c - will follow for now Subjective Date of service: 02/03/17 Principal diagnosis: cirrhosis Interval history: - no changes overnight Objective - Constitutional Vitals: Temp Pulse Resp BP Pulse Ox 97.4 F L 112 H 18 127/97 97 02/02/17 22:07 02/02/17 22:07 02/02/17 22:07 02/02/17 22:07 02/02/17 22:07 General appearance: no acute distress - Respiratory Respiratory: bilateral: CTA - Cardiovascular Rhythm: regular Heart Sounds: Present: S1 & S2 - Gastrointestinal General gastrointestinal: Present: soft, non-tender - Labs CBC & Chem 7: 02/03/17 06:20 02/03/17 06:20 Labs: Laboratory Results - last 24 hr 01/30/17 02/02/17 02/03/17 Unknown 15:03 06:20 WBC 8.4 RBC 3.63 L Hgb 9.8 L Hct 30.7 MCV 85 MCH 27 L MCHC 32 RDW 19.7 H Plt Count 140 PT INR APTT Sodium Potassium Chloride Carbon Dioxide Anion Gap BUN Creatinine Estimated GFR BUN/Creatinine Ratio Glucose Calcium Total Bilirubin AST ALT Alkaline Phosphatase Ammonia 44.0 Total Protein Albumin Albumin/Globulin Ratio Fluid Glucose 100 H Fluid Total Protein < 3.0 L Fluid LDH 764 02/03/17 02/03/17 06:20 06:20 WBC RBC Hgb Hct MCV MCH MCHC RDW Plt Count PT 25.9 H INR 2.25 H APTT 47.1 H Sodium 135 L Potassium 4.0 Chloride 101.1 Carbon Dioxide 15 L Anion Gap 23 BUN 38 H Creatinine 1.4 H Estimated GFR 46 BUN/Creatinine Ratio 27 Glucose 64 L Calcium 7.9 L Total Bilirubin 6.20 H AST 760 H ALT 336 H Alkaline Phosphatase 352 H Ammonia Total Protein 5.0 L Albumin 2.0 L Albumin/Globulin Ratio 0.7 Fluid Glucose Fluid Total Protein Fluid LDH
[2017-02-03] MEDS: SODIUM BICARBONATE PO SCH ×3 (08:56→22:01)
[2017-02-03] MEDS: CEPHULAC PO SCH (09:53)
[2017-02-03] MEDS: NORVASC PO SCH (09:54)
[2017-02-03] MEDS: HEPARIN SUB-Q SCH ×2 (09:54→22:00)
--- NOTE | 2017-02-03 14:51 | Discharge Summary ---
Providers - Providers Date of Admission: 01/29/17 22:40 Date of discharge: 02/05/17 Attending physician: JANELLE ALVARADO 01/29/17 23:19 Consult to Physician [CONS] Routine Consulting Provider: JOSE ALFREDO RAJAN Reason For Exam: liver masses Place consult to:: Oncology Notified:: voice mail Phone number called:: Was contact made?: No Time called:: 12:00 Comment:: left msg 01/29/17 23:20 Consult to Physician [CONS] Routine Consulting Provider: ERNA TITUS Reason For Exam: pckd Place consult to:: Nephrology Notified:: answering service Phone number called:: Was contact made?: No Time called:: 12:03 Comment:: lft msg on voice mail 01/30/17 11:46 Consult to Physician [CONS] Routine Consulting Provider: REGI ARRIOLA Reason For Exam: decompensated liver cirrhosis Place consult to:: dr. 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 Patient has been a heavy drinker for years but sober for the last few years. Ascites with liver mass, unlikely Liver Cancer mostly likely pckd affecting the liver also. Severe malnutritution, poa: consult Parent Educator, GI is following Liver Cirrhosis with Ascites: GI is following Lactulose for amonia levels and altered mental status. Sc heparin placed on hold pendiing diagnostic procedure MRI/MRA pending, AFT pending Monitor: CBC, CMP, Ammonia Levels Acute encephalopathy, suspected hepatic in nature, poa: treat with lactulose Accelerated Hypertension: Continue antihypertensive medication, Amlodipine and IV Hydralazine PRN. Polycystic Kidney Disease with acute to chronic CKD 3, due to vasomotor nephropathy, poa: Nephrology following Metabolic acidosis due to Renal failure: treat with sodium bicarbonate, renal is following Sepsis due to suspected peritionitis, poa, wbc normal now: Continue ABX therapy , awaiting culture results DVT prophylaxis: add sq heparin Her abdomen is more tight and distended today, she is tachycardic. Spoke with Dr. Geiger, the wrecking mechanic, for possible admission to ICU. He recommends that I call GI for another therapeutic paracentesis. So, called and spoke GI, Dr. Mejía==>will proceed with paracentesis and Dr. Robles will see today===> Abd distension due to cirrhosis, +polycystic liver d/w nephkali Montero. Patient needs to be evaluated at [facility] PCKD/renal clinic for transplant. Home with Hospice poor prognosis. per GI: GI: PCKD w/ liver cyst - agree w/ home hospice - no further GI interventions - will sign off, call if needed I spoke with Winston at bedside, They are all in agreement for DNR and hospice. Disposition: [id number] ([facility]) Time spent for discharge: 40 minutes Core Measure Documentation - Palliative Care Palliative Care/ Comfort Measures: Hospice Care - Core Measures Any of the following diagnoses?: none - VTE Discharge Requirements Deep Vein Thrombosis/Pulmonary Embolism Present on Admission: No Has pt received <5 days of overlap therapy or INR<2.0: No Anticoagulant overlap therapy prescribed at discharge: No Contraindication No Overlap Therapy order at DC: Not Indicated Exam - Physical Exam Narrative exam: GEN: ill appearing, awake alert orientated x 3 HEENT: NCAT, EOMI, PERRL, OP Clear NECK: supple, no adenopathy, no thyromegaly, no JVD CVS/HEART: regular tachy, NORMAL S1S2, NO JVD, pulses present bilaterally CHEST/LUNGS: CTA B, Symmetrical chest expansion, good air entry bilaterally GI/Abdomen: more tense, distended, colostomy with bowel protuding thru orifice, +bowel sounds, /Bladder: no suprapubic tenderness, no CVA or paraspinal tenderness EXT/Skin: no new rash, +sclera icterus MSK: FROM x 4 Neuro: CN 2-12 grossly intact, no new focal deficits Psych: calm - Constitutional Vitals: Temp Pulse Resp BP Pulse Ox 97.3 F L 106 H 18 129/91 97 02/03/17 07:28 02/03/17 09:54 02/03/17 07:28 02/03/17 09:54 02/03/17 07:28 Plan Activity: no driving until cleared by PCP, up only with assistance, fall precautions, other (no strenous activity until cleared by pcp) Diet: clear liquids, advance as tolerated, other (Goal is 4 Boost Shakes Plus per day. Barbara kelley with meals and prn) Durable Medical Equipment Needed Upon Discharge: Oxygen Additional Instructions: Call [facility] [phone] for first available appointment , [place] Follow up with: PRIMARY CAREMD [Primary Care Provider] - 3-5 Days REGI ARRIOLA MD [Staff Physician] - 7 Days JOSE ALFREDO RAJAN DO [Staff Physician] - 14 Days ERNA TITUS MD [Staff Physician] - 10 Days Prescriptions: amLODIPine [Norvasc] 10 mg PO QDAY #30 tablet Lactulose [Cephulac] 20 gm PO QDAY #30 day Oxycodone HCl [oxyCODONE TAB] 10 mg PO Q6H PRN #30 tablet PRN Reason: Pain Sodium Bicarbonate 1,300 mg PO TID #30 day Levofloxacin [Levaquin TAB] 750 mg PO Q48HR #4 dose
--- NOTE | 2017-02-03 15:52 | Progress Note ---
Assessment and Plan Assessment and plan: Patient is a 61-year-old woman with a history of hypertension, polycystic kidney disease, dementia, liver disease, renal failure, status post colostomy who presented to [facility] ED with complaints of not eating and drinking and abdominal pains Patient has been a heavy drinker for years but sober for the last few years. Ascites with liver mass related to pckd, severe Severe malnutritution, poa: consult Punch Operator, GI is following Liver Cirrhosis with Ascites: GI is following Lactulose for amonia levels and altered mental status. Sc heparin placed on hold pendiing diagnostic procedure MRI/MRA pending, AFT pending Monitor: CBC, CMP, Ammonia Levels Acute encephalopathy, suspected hepatic in nature, poa: treat with lactulose Accelerated Hypertension: Continue antihypertensive medication, Amlodipine and IV Hydralazine PRN. Polycystic Kidney Disease with acute to chronic CKD 3, due to vasomotor nephropathy, poa: Nephrology following Metabolic acidosis due to Renal failure: treat with sodium bicarbonate, renal is following Sepsis due to suspected peritionitis, poa, wbc normal now: Continue ABX therapy , awaiting culture results DVT prophylaxis: add sq heparin Home with hospice or inpatient hospice History Interval history: Patient was seen and examined. Follow-up on current diagnosis/abdominal pain which is still present. Overnight she was placed in roll belt restraints. Her abdomen is more distended and tight. Patient denies any chest pain, shortness breath, nausea/vomiting or severe headaches. Imaging, nursing note, chart, labs and old chart reviewed. Discussed with patient. Hospitalist Physical - Physical exam Narrative exam: GEN: ill appearing, awake alert orientated x 3 HEENT: NCAT, EOMI, PERRL, OP Clear NECK: supple, no adenopathy, no thyromegaly, no JVD CVS/HEART: regular tachy, NORMAL S1S2, NO JVD, pulses present bilaterally CHEST/LUNGS: CTA B, Symmetrical chest expansion, good air entry bilaterally GI/Abdomen: more tense, distended, colostomy with bowel protuding thru orifice, +bowel sounds, /Bladder: no suprapubic tenderness, no CVA or paraspinal tenderness EXT/Skin: no new rash, +sclera icterus MSK: FROM x 4 Neuro: CN 2-12 grossly intact, no new focal deficits Psych: calm - Constitutional Vitals: Temp Pulse Resp BP Pulse Ox 97.3 F L 106 H 18 129/91 97 02/03/17 07:28 02/03/17 09:54 02/03/17 07:28 02/03/17 09:54 02/03/17 07:28 General appearance: Present: mild distress Results - Labs CBC & Chem 7: 02/03/17 06:20 02/03/17 06:20 Labs: Laboratory Last Values WBC 8.4 K/mm3 (4.5-11.0) 02/03/17 06:20 RBC 3.63 M/mm3 (3.65-5.03) L 02/03/17 06:20 Hgb 9.8 gm/dl (10.1-14.3) L 02/03/17 06:20 Hct 30.7 % (30.3-42.9) 02/03/17 06:20 MCV 85 fl (79-97) 02/03/17 06:20 MCH 27 pg (28-32) L 02/03/17 06:20 MCHC 32 % (30-34) 02/03/17 06:20 RDW 19.7 % (13.2-15.2) H 02/03/17 06:20 Plt Count 140 K/mm3 (140-440) 02/03/17 06:20 Lymph % (Auto) 5.5 % (13.4-35.0) L 01/31/17 05:14 [place] % (Auto) 5.7 % (0.0-7.3) 01/31/17 05:14 Eos % (Auto) 0.0 % (0.0-4.3) 01/31/17 05:14 Baso % (Auto) 0.2 % (0.0-1.8) 01/31/17 05:14 Lymph # 0.9 K/mm3 (1.2-5.4) L 01/31/17 05:14 [place] # 0.9 K/mm3 (0.0-0.8) H 01/31/17 05:14 Eos # 0.0 K/mm3 (0.0-0.4) 01/31/17 05:14 Baso # 0.0 K/mm3 (0.0-0.1) 01/31/17 05:14 Add Manual Diff Complete 01/30/17 07:46 Total Counted 100 01/30/17 07:46 Seg Neutrophils % 88.6 % (40.0-70.0) H 01/31/17 05:14 Seg Neuts % (Manual) 91.0 % (40.0-70.0) H 01/30/17 07:46 Band Neutrophils % 0 % 01/30/17 07:46 Lymphocytes % (Manual) 3.0 % (13.4-35.0) L 01/30/17 07:46 Reactive Lymphs % (Man) 0 % 01/30/17 07:46 Monocytes % (Manual) 6.0 % (0.0-7.3) 01/30/17 07:46 Eosinophils % (Manual) 0 % (0.0-4.3) 01/30/17 07:46 Basophils % (Manual) 0 % (0.0-1.8) 01/30/17 07:46 Metamyelocytes % 0 % 01/30/17 07:46 Myelocytes % 0 % 01/30/17 07:46 Promyelocytes % 0 % 01/30/17 07:46 Blast Cells % 0 % 01/30/17 07:46 Nucleated RBC % Not Reportable 01/30/17 07:46 Seg Neutrophils # 14.3 K/mm3 (1.8-7.7) H 01/31/17 05:14 Seg Neutrophils # Man 15.5 K/mm3 (1.8-7.7) H 01/30/17 07:46 Band Neutrophils # 0.0 K/mm3 01/30/17 07:46 Lymphocytes # (Manual) 0.5 K/mm3 (1.2-5.4) L 01/30/17 07:46 Abs React Lymphs (Man) 0.0 K/mm3 01/30/17 07:46 Monocytes # (Manual) 1.0 K/mm3 (0.0-0.8) H 01/30/17 07:46 Eosinophils # (Manual) 0.0 K/mm3 (0.0-0.4) 01/30/17 07:46 Basophils # (Manual) 0.0 K/mm3 (0.0-0.1) 01/30/17 07:46 Metamyelocytes # 0.0 K/mm3 01/30/17 07:46 Myelocytes # 0.0 K/mm3 01/30/17 07:46 Promyelocytes # 0.0 K/mm3 01/30/17 07:46 Blast Cells # 0.0 K/mm3 01/30/17 07:46 WBC Morphology Not Reportable 01/30/17 07:46 Hypersegmented Neuts Not Reportable 01/30/17 07:46 Hyposegmented Neuts Not Reportable 01/30/17 07:46 Hypogranular Neuts Not Reportable 01/30/17 07:46 Smudge Cells Not Reportable 01/30/17 07:46 Toxic Granulation Not Reportable 01/30/17 07:46 Toxic Vacuolation Not Reportable 01/30/17 07:46 Dohle Bodies Not Reportable 01/30/17 07:46 Pelger-Huet Anomaly Not Reportable 01/30/17 07:46 Иван Rods Not Reportable 01/30/17 07:46 Platelet Estimate Consistent w auto 01/30/17 07:46 Clumped Platelets Not Reportable 01/30/17 07:46 Plt Clumps, EDTA Not Reportable 01/30/17 07:46 Large Platelets Not Reportable 01/30/17 07:46 Giant Platelets Not Reportable 01/30/17 07:46 Platelet Satelliting Not Reportable 01/30/17 07:46 Plt Morphology Comment Not Reportable 01/30/17 07:46 RBC Morphology Not Reportable 01/30/17 07:46 Dimorphic RBCs Not Reportable 01/30/17 07:46 Polychromasia Not Reportable 01/30/17 07:46 Hypochromasia Not Reportable 01/30/17 07:46 Poikilocytosis Few 01/30/17 07:46 Anisocytosis 1+ 01/30/17 07:46 Microcytosis Not Reportable 01/30/17 07:46 Macrocytosis Few 01/30/17 07:46 Spherocytes Not Reportable 01/30/17 07:46 Pappenheimer Bodies Not Reportable 01/30/17 07:46 Sickle Cells Not Reportable 01/30/17 07:46 Target Cells Not Reportable 01/30/17 07:46 Tear Drop Cells Not Reportable 01/30/17 07:46 Ovalocytes Not Reportable 01/30/17 07:46 Helmet Cells Not Reportable 01/30/17 07:46 Traylor-[place] Bodies Not Reportable 01/30/17 07:46 [place] Rings Not Reportable 01/30/17 07:46 Vinnie Cells Few 01/30/17 07:46 Bite Cells Not Reportable 01/30/17 07:46 Crenated Cell Not Reportable 01/30/17 07:46 Elliptocytes Not Reportable 01/30/17 07:46 Acanthocytes (Spur) Not Reportable 01/30/17 07:46 Rouleaux Not Reportable 01/30/17 07:46 Hemoglobin C Crystals Not Reportable 01/30/17 07:46 Schistocytes Not Reportable 01/30/17 07:46 Malaria parasites Not Reportable 01/30/17 07:46 Sandro Bodies Not Reportable 01/30/17 07:46 Hem Pathologist Commnt No 01/30/17 07:46 PT 25.9 Sec. (12.2-14.9) H 02/03/17 06:20 INR 2.25 (0.87-1.13) H 02/03/17 06:20 APTT 47.1 Sec. (24.2-36.6) H 02/03/17 06:20 Sodium 135 mmol/L (137-145) L 02/03/17 06:20 Potassium 4.0 mmol/L (3.6-5.0) 02/03/17 06:20 Chloride 101.1 mmol/L (98-107) 02/03/17 06:20 Carbon Dioxide 15 mmol/L (22-30) L 02/03/17 06:20 Anion Gap 23 mmol/L 02/03/17 06:20 BUN 38 mg/dL (7-17) H 02/03/17 06:20 Creatinine 1.4 mg/dL (0.7-1.2) H 02/03/17 06:20 Estimated GFR 46 ml/min 02/03/17 06:20 BUN/Creatinine Ratio 27 % 02/03/17 06:20 Glucose 64 mg/dL (65-100) L 02/03/17 06:20 Lactic Acid 2.40 mmol/L (0.7-2.0) H* 01/31/17 08:23 Calcium 7.9 mg/dL (8.4-10.2) L 02/03/17 06:20 Phosphorus 4.40 mg/dL (2.5-4.5) 02/02/17 05:44 Magnesium 2.00 mg/dL (1.7-2.3) 01/29/17 20:24 Total Bilirubin 6.20 mg/dL (0.1-1.2) H 02/03/17 06:20 Direct Bilirubin 3.1 mg/dL (0-0.2) H 01/31/17 15:36 Indirect Bilirubin 0.8 mg/dL 01/31/17 15:36 AST 760 units/L (5-40) H 02/03/17 06:20 ALT 336 units/L (7-56) H 02/03/17 06:20 Alkaline Phosphatase 352 units/L (35-129) H 02/03/17 06:20 Ammonia 44.0 umol/L (25-60) 02/02/17 15:03 Total Creatine Kinase 188 units/L (30-135) H 01/30/17 07:46 NT-Pro-B Natriuret Pep 1747 pg/mL (0-900) H 01/29/17 16:19 Total Protein 5.0 g/dL (6.3-8.2) L 02/03/17 06:20 Albumin 2.0 g/dL (3.9-5) L 02/03/17 06:20 Albumin/Globulin Ratio 0.7 % 02/03/17 06:20 Lipase 39 units/L (13-60) 01/29/17 16:19 Urine Color Yellow (Yellow) 01/29/17 17:44 Urine Turbidity Clear (Clear) 01/29/17 17:44 Urine pH 5.0 (5.0-7.0) 01/29/17 17:44 Ur Specific [place] 1.009 (1.003-1.030) 01/29/17 17:44 Urine Protein <15 mg/dl mg/dL (Negative) 01/29/17 17:44 Urine Glucose (UA) Neg mg/dL (Negative) 01/29/17 17:44 Urine Ketones Neg mg/dL (Negative) 01/29/17 17:44 Urine Blood Neg (Negative) 01/29/17 17:44 Urine Nitrite Neg (Negative) 01/29/17 17:44 Urine Bilirubin Neg (Negative) 01/29/17 17:44 Urine Urobilinogen < 2.0 mg/dL (<2.0) 01/29/17 17:44 Ur Leukocyte Esterase Neg (Negative) 01/29/17 17:44 Urine WBC (Auto) 0.0 /HPF (0.0-6.0) 01/29/17 17:44 Urine RBC (Auto) < 1.0 /HPF (0.0-6.0) 01/29/17 17:44 Fluid Type Ascitic 01/30/17 Unknown Fluid Color Bloody 01/30/17 Unknown Fluid Appearance Turbid 01/30/17 Unknown Fluid WBC 97563 /mm3 01/30/17 Unknown Fluid RBC 467708 /mm3 01/30/17 Unknown Fluid Seg Neutrophils 54.0 % 01/30/17 Unknown Fluid Lymphocytes 36.0 % 01/30/17 Unknown Fluid Reactive Lymphs 0 % 01/30/17 Unknown Fluid Monocytes 10.0 % 01/30/17 Unknown Fluid Eosinophils 0 % 01/30/17 Unknown Fluid Basophils 0 % 01/30/17 Unknown Fluid Glucose 100 mg/dL (40-70) H 01/30/17 Unknown Fluid Total Protein < 3.0 (15.0-45.0) L 01/30/17 Unknown Fluid LDH 764 01/30/17 Unknown Hepatitis A IgM Ab Non-reactive (NonReactive) 01/31/17 08:23 Hep Bs Antigen Non-reactive (Negative) 01/31/17 08:23 Hep B Core IgM Ab Non-reactive (NonReactive) 01/31/17 08:23 Hepatitis C Antibody Non-reactive (NonReactive) 01/31/17 08:23 Blood Type B POSITIVE 01/29/17 16:35 Antibody Screen Negative 01/29/17 16:35
[2017-02-03] MEDS: DILAUDID IV PRN (22:14)
[2017-02-04 05:50] LABS: Hemoglobin 9.6 gm/dl (10.1-14.3); Mean Corpuscular HGB Conc 31 % (30-34); Mean Corpuscular Hemoglobin 26 pg (28-32); Mean Corpuscular Volume 85 fl (79-97); Platelet Count 166 K/mm3 (140-440); Red Blood Count 3.66 M/mm3 (3.65-5.03); White Blood Count 11.1 K/mm3 (4.5-11.0)
[2017-02-04 06:10] LABS: Albumin 1.8 g/dL (3.9-5); Albumin/Globulin Ratio 0.5 %; Bilirubin,Total 6.6 mg/dL (0.1-1.2); Potassium 5.5 mmol/L (3.6-5.0); Total Protein 5.1 g/dL (6.3-8.2)
[2017-02-04] MEDS ORDERED: D50W (25GM) Vial 50 ML IV ONE (06:46)
[2017-02-04] MEDS ORDERED: D50W (25GM) Syringe IV ONE (06:48)
[2017-02-04] MEDS ORDERED: D50W (25GM) Vial IV NR (07:00)
[2017-02-04] MEDS: SODIUM BICARBONATE PO SCH ×2 (08:00→13:03)
[2017-02-04] MEDS: CEPHULAC PO SCH (10:00)
[2017-02-04] MEDS: HEPARIN SUB-Q SCH ×2 (10:00→11:42)
[2017-02-04] MEDS ORDERED: LEVAQUIN PO SCH (10:00)
[2017-02-04] MEDS: D5NS 1,000 ML IV SCH (10:17)
--- NOTE | 2017-02-04 10:55 | Progress Note ---
Assessment and Plan Assessment and plan: Patient is a 61-year-old woman with a history of hypertension, polycystic kidney disease, dementia, liver disease, renal failure, status post colostomy who presented to [facility] ED with complaints of not eating and drinking and abdominal pains Patient has been a heavy drinker for years but sober for the last few years. Ascites with liver mass related to pckd, severe Severe malnutritution, poa: consult School Inspector, GI is following Liver Cirrhosis with Ascites: GI is following Lactulose for amonia levels and altered mental status. Sc heparin placed on hold pendiing diagnostic procedure MRI/MRA pending, AFT pending Monitor: CBC, CMP, Ammonia Levels Acute encephalopathy, suspected hepatic in nature, poa: treat with lactulose Accelerated Hypertension: Continue antihypertensive medication, Amlodipine and IV Hydralazine PRN. Polycystic Kidney Disease with acute to chronic CKD 3, due to vasomotor nephropathy, poa: Nephrology following Metabolic acidosis due to Renal failure: treat with sodium bicarbonate, renal is following Sepsis due to suspected peritionitis, poa, wbc normal now: Continue ABX therapy , awaiting culture results DVT prophylaxis: add sq heparin Home with hospice or inpatient hospice Await bed availablility replace blood glucose History Interval history: Patient was seen and examined. Follow-up on current diagnosis/abdominal pain which is still present. She is in more pain and more lethargic, blood glucose very low and she is not on insulin or dm medication, failure to thrive is the cause which is a poor prognostic sign. Imaging, nursing note, chart, labs and old chart reviewed. Hospitalist Physical - Physical exam Narrative exam: GEN: ill appearing, lethargic, orientated x 2, did not want to answer the year HEENT: NCAT, EOMI, PERRL, OP Clear NECK: supple, no adenopathy, no thyromegaly, no JVD CVS/HEART: regular tachy, NORMAL S1S2, NO JVD, pulses present bilaterally CHEST/LUNGS: CTA B, Symmetrical chest expansion, good air entry bilaterally GI/Abdomen: more tense, distended, colostomy with bowel protuding thru orifice, +bowel sounds, /Bladder: no suprapubic tenderness, no CVA or paraspinal tenderness EXT/Skin: no new rash, +sclera icterus MSK: FROM x 4 Neuro: CN 2-12 grossly intact, no new focal deficits Psych: calm - Constitutional Vitals: Temp Pulse Resp BP Pulse Ox 97.7 F 95 H 18 135/86 94 02/04/17 08:08 02/04/17 08:08 02/04/17 08:08 02/04/17 08:08 02/04/17 08:08 General appearance: Present: severe distress, cachectic Results - Labs CBC & Chem 7: 02/04/17 05:14 02/04/17 05:14 Labs: Laboratory Last Values WBC 11.1 K/mm3 (4.5-11.0) H 02/04/17 05:14 RBC 3.66 M/mm3 (3.65-5.03) 02/04/17 05:14 Hgb 9.6 gm/dl (10.1-14.3) L 02/04/17 05:14 Hct 31.0 % (30.3-42.9) 02/04/17 05:14 MCV 85 fl (79-97) 02/04/17 05:14 MCH 26 pg (28-32) L 02/04/17 05:14 MCHC 31 % (30-34) 02/04/17 05:14 RDW 20.0 % (13.2-15.2) H 02/04/17 05:14 Plt Count 166 K/mm3 (140-440) 02/04/17 05:14 Lymph % (Auto) 5.5 % (13.4-35.0) L 01/31/17 05:14 [place] % (Auto) 5.7 % (0.0-7.3) 01/31/17 05:14 Eos % (Auto) 0.0 % (0.0-4.3) 01/31/17 05:14 Baso % (Auto) 0.2 % (0.0-1.8) 01/31/17 05:14 Lymph # 0.9 K/mm3 (1.2-5.4) L 01/31/17 05:14 [place] # 0.9 K/mm3 (0.0-0.8) H 01/31/17 05:14 Eos # 0.0 K/mm3 (0.0-0.4) 01/31/17 05:14 Baso # 0.0 K/mm3 (0.0-0.1) 01/31/17 05:14 Add Manual Diff Complete 01/30/17 07:46 Total Counted 100 01/30/17 07:46 Seg Neutrophils % 88.6 % (40.0-70.0) H 01/31/17 05:14 Seg Neuts % (Manual) 91.0 % (40.0-70.0) H 01/30/17 07:46 Band Neutrophils % 0 % 01/30/17 07:46 Lymphocytes % (Manual) 3.0 % (13.4-35.0) L 01/30/17 07:46 Reactive Lymphs % (Man) 0 % 01/30/17 07:46 Monocytes % (Manual) 6.0 % (0.0-7.3) 01/30/17 07:46 Eosinophils % (Manual) 0 % (0.0-4.3) 01/30/17 07:46 Basophils % (Manual) 0 % (0.0-1.8) 01/30/17 07:46 Metamyelocytes % 0 % 01/30/17 07:46 Myelocytes % 0 % 01/30/17 07:46 Promyelocytes % 0 % 01/30/17 07:46 Blast Cells % 0 % 01/30/17 07:46 Nucleated RBC % Not Reportable 01/30/17 07:46 Seg Neutrophils # 14.3 K/mm3 (1.8-7.7) H 01/31/17 05:14 Seg Neutrophils # Man 15.5 K/mm3 (1.8-7.7) H 01/30/17 07:46 Band Neutrophils # 0.0 K/mm3 01/30/17 07:46 Lymphocytes # (Manual) 0.5 K/mm3 (1.2-5.4) L 01/30/17 07:46 Abs React Lymphs (Man) 0.0 K/mm3 01/30/17 07:46 Monocytes # (Manual) 1.0 K/mm3 (0.0-0.8) H 01/30/17 07:46 Eosinophils # (Manual) 0.0 K/mm3 (0.0-0.4) 01/30/17 07:46 Basophils # (Manual) 0.0 K/mm3 (0.0-0.1) 01/30/17 07:46 Metamyelocytes # 0.0 K/mm3 01/30/17 07:46 Myelocytes # 0.0 K/mm3 01/30/17 07:46 Promyelocytes # 0.0 K/mm3 01/30/17 07:46 Blast Cells # 0.0 K/mm3 01/30/17 07:46 WBC Morphology Not Reportable 01/30/17 07:46 Hypersegmented Neuts Not Reportable 01/30/17 07:46 Hyposegmented Neuts Not Reportable 01/30/17 07:46 Hypogranular Neuts Not Reportable 01/30/17 07:46 Smudge Cells Not Reportable 01/30/17 07:46 Toxic Granulation Not Reportable 01/30/17 07:46 Toxic Vacuolation Not Reportable 01/30/17 07:46 Dohle Bodies Not Reportable 01/30/17 07:46 Pelger-Huet Anomaly Not Reportable 01/30/17 07:46 Иван Rods Not Reportable 01/30/17 07:46 Platelet Estimate Consistent w auto 01/30/17 07:46 Clumped Platelets Not Reportable 01/30/17 07:46 Plt Clumps, EDTA Not Reportable 01/30/17 07:46 Large Platelets Not Reportable 01/30/17 07:46 Giant Platelets Not Reportable 01/30/17 07:46 Platelet Satelliting Not Reportable 01/30/17 07:46 Plt Morphology Comment Not Reportable 01/30/17 07:46 RBC Morphology Not Reportable 01/30/17 07:46 Dimorphic RBCs Not Reportable 01/30/17 07:46 Polychromasia Not Reportable 01/30/17 07:46 Hypochromasia Not Reportable 01/30/17 07:46 Poikilocytosis Few 01/30/17 07:46 Anisocytosis 1+ 01/30/17 07:46 Microcytosis Not Reportable 01/30/17 07:46 Macrocytosis Few 01/30/17 07:46 Spherocytes Not Reportable 01/30/17 07:46 Pappenheimer Bodies Not Reportable 01/30/17 07:46 Sickle Cells Not Reportable 01/30/17 07:46 Target Cells Not Reportable 01/30/17 07:46 Tear Drop Cells Not Reportable 01/30/17 07:46 Ovalocytes Not Reportable 01/30/17 07:46 Helmet Cells Not Reportable 01/30/17 07:46 Tray[place] Bodies Not Reportable 01/30/17 07:46 [place] Rings Not Reportable 01/30/17 07:46 Vinnie Cells Few 01/30/17 07:46 Bite Cells Not Reportable 01/30/17 07:46 Crenated Cell Not Reportable 01/30/17 07:46 Elliptocytes Not Reportable 01/30/17 07:46 Acanthocytes (Spur) Not Reportable 01/30/17 07:46 Rouleaux Not Reportable 01/30/17 07:46 Hemoglobin C Crystals Not Reportable 01/30/17 07:46 Schistocytes Not Reportable 01/30/17 07:46 Malaria parasites Not Reportable 01/30/17 07:46 Sandro Bodies Not Reportable 01/30/17 07:46 Hem Pathologist Commnt No 01/30/17 07:46 PT 25.9 Sec. (12.2-14.9) H 02/03/17 06:20 INR 2.25 (0.87-1.13) H 02/03/17 06:20 APTT 47.1 Sec. (24.2-36.6) H 02/03/17 06:20 Sodium 135 mmol/L (137-145) L 02/04/17 05:14 Potassium 5.5 mmol/L (3.6-5.0) H D 02/04/17 05:14 Chloride 100.0 mmol/L (98-107) 02/04/17 05:14 Carbon Dioxide 14 mmol/L (22-30) L 02/04/17 05:14 Anion Gap 27 mmol/L 02/04/17 05:14 BUN 50 mg/dL (7-17) H 02/04/17 05:14 Creatinine 1.6 mg/dL (0.7-1.2) H 02/04/17 05:14 Estimated GFR 40 ml/min 02/04/17 05:14 BUN/Creatinine Ratio 31 % 02/04/17 05:14 Glucose 37 mg/dL (65-100) L* 02/04/17 05:14 POC Glucose 92 (70-105) 02/04/17 07:31 Lactic Acid 2.40 mmol/L (0.7-2.0) H* 01/31/17 08:23 Calcium 8.0 mg/dL (8.4-10.2) L 02/04/17 05:14 Phosphorus 4.40 mg/dL (2.5-4.5) 02/02/17 05:44 Magnesium 2.00 mg/dL (1.7-2.3) 01/29/17 20:24 Total Bilirubin 6.60 mg/dL (0.1-1.2) H 02/04/17 05:14 Direct Bilirubin 3.1 mg/dL (0-0.2) H 01/31/17 15:36 Indirect Bilirubin 0.8 mg/dL 01/31/17 15:36 AST 508 units/L (5-40) H 02/04/17 05:14 ALT 278 units/L (7-56) H 02/04/17 05:14 Alkaline Phosphatase 337 units/L (35-129) H 02/04/17 05:14 Ammonia 44.0 umol/L (25-60) 02/02/17 15:03 Total Creatine Kinase 188 units/L (30-135) H 01/30/17 07:46 NT-Pro-B Natriuret Pep 1747 pg/mL (0-900) H 01/29/17 16:19 Total Protein 5.1 g/dL (6.3-8.2) L 02/04/17 05:14 Albumin 1.8 g/dL (3.9-5) L 02/04/17 05:14 Albumin/Globulin Ratio 0.5 % 02/04/17 05:14 Lipase 39 units/L (13-60) 01/29/17 16:19 Urine Color Yellow (Yellow) 01/29/17 17:44 Urine Turbidity Clear (Clear) 01/29/17 17:44 Urine pH 5.0 (5.0-7.0) 01/29/17 17:44 Ur Specific [place] 1.009 (1.003-1.030) 01/29/17 17:44 Urine Protein <15 mg/dl mg/dL (Negative) 01/29/17 17:44 Urine Glucose (UA) Neg mg/dL (Negative) 01/29/17 17:44 Urine Ketones Neg mg/dL (Negative) 01/29/17 17:44 Urine Blood Neg (Negative) 01/29/17 17:44 Urine Nitrite Neg (Negative) 01/29/17 17:44 Urine Bilirubin Neg (Negative) 01/29/17 17:44 Urine Urobilinogen < 2.0 mg/dL (<2.0) 01/29/17 17:44 Ur Leukocyte Esterase Neg (Negative) 01/29/17 17:44 Urine WBC (Auto) 0.0 /HPF (0.0-6.0) 01/29/17 17:44 Urine RBC (Auto) < 1.0 /HPF (0.0-6.0) 01/29/17 17:44 Fluid Type Ascitic 01/30/17 Unknown Fluid Color Bloody 01/30/17 Unknown Fluid Appearance Turbid 01/30/17 Unknown Fluid WBC 86428 /mm3 01/30/17 Unknown Fluid RBC 435139 /mm3 01/30/17 Unknown Fluid Seg Neutrophils 54.0 % 01/30/17 Unknown Fluid Lymphocytes 36.0 % 01/30/17 Unknown Fluid Reactive Lymphs 0 % 01/30/17 Unknown Fluid Monocytes 10.0 % 01/30/17 Unknown Fluid Eosinophils 0 % 01/30/17 Unknown Fluid Basophils 0 % 01/30/17 Unknown Fluid Glucose 100 mg/dL (40-70) H 01/30/17 Unknown Fluid Total Protein < 3.0 (15.0-45.0) L 01/30/17 Unknown Fluid LDH 764 01/30/17 Unknown Hepatitis A IgM Ab Non-reactive (NonReactive) 01/31/17 08:23 Hep Bs Antigen Non-reactive (Negative) 01/31/17 08:23 Hep B Core IgM Ab Non-reactive (NonReactive) 01/31/17 08:23 Hepatitis C Antibody Non-reactive (NonReactive) 01/31/17 08:23 Blood Type B POSITIVE 01/29/17 16:35 Antibody Screen Negative 01/29/17 16:35
--- NOTE | 2017-02-04 11:02 | Gastroenterology Progress Note ---
Assessment and Plan GI: PCKD w/ liver cyst - agree w/ home hospice - no further GI interventions - will sign off, call if needed Subjective Date of service: 02/04/17 Principal diagnosis: cirrhosis Interval history: - no changes overnight Objective - Constitutional Vitals: Temp Pulse Resp BP Pulse Ox 97.7 F 95 H 18 135/86 94 02/04/17 08:08 02/04/17 08:08 02/04/17 08:08 02/04/17 08:08 02/04/17 08:08 General appearance: no acute distress - Respiratory Respiratory: bilateral: CTA - Cardiovascular Rhythm: regular Heart Sounds: Present: S1 & S2 - Gastrointestinal General gastrointestinal: Present: soft, tender, distended - Labs CBC & Chem 7: 02/04/17 05:14 02/04/17 05:14 Labs: Laboratory Results - last 24 hr 02/04/17 02/04/17 02/04/17 05:14 05:14 06:40 WBC 11.1 H RBC 3.66 Hgb 9.6 L Hct 31.0 MCV 85 MCH 26 L MCHC 31 RDW 20.0 H Plt Count 166 Sodium 135 L Potassium 5.5 H D Chloride 100.0 Carbon Dioxide 14 L Anion Gap 27 BUN 50 H Creatinine 1.6 H Estimated GFR 40 BUN/Creatinine Ratio 31 Glucose 37 L* POC Glucose < 40 L Calcium 8.0 L Total Bilirubin 6.60 H AST 508 H ALT 278 H Alkaline Phosphatase 337 H Total Protein 5.1 L Albumin 1.8 L Albumin/Globulin Ratio 0.5 02/04/17 02/04/17 02/04/17 06:56 07:01 07:11 WBC RBC Hgb Hct MCV MCH MCHC RDW Plt Count Sodium Potassium Chloride Carbon Dioxide Anion Gap BUN Creatinine Estimated GFR BUN/Creatinine Ratio Glucose POC Glucose 64 L 50 L 61 L Calcium Total Bilirubin AST ALT Alkaline Phosphatase Total Protein Albumin Albumin/Globulin Ratio 02/04/17 07:31 WBC RBC Hgb Hct MCV MCH MCHC RDW Plt Count Sodium Potassium Chloride Carbon Dioxide Anion Gap BUN Creatinine Estimated GFR BUN/Creatinine Ratio Glucose POC Glucose 92 Calcium Total Bilirubin AST ALT Alkaline Phosphatase Total Protein Albumin Albumin/Globulin Ratio
[2017-02-05] MEDS: HEPARIN SUB-Q SCH ×2 (00:48→11:11)
[2017-02-05] MEDS: SODIUM BICARBONATE PO SCH ×2 (00:48→08:00)
[2017-02-05] MEDS: D5NS 1,000 ML IV SCH (02:36)
[2017-02-05 06:23] LABS: Albumin 1.8 g/dL (3.9-5); Albumin/Globulin Ratio 0.6 %; Bilirubin,Total 5.9 mg/dL (0.1-1.2); Calcium 7.7 mg/dL (8.4-10.2); Chloride 100.8 mmol/L (98-107); Potassium 4.7 mmol/L (3.6-5.0); Total Protein 4.8 g/dL (6.3-8.2)
[2017-02-05 06:24] LABS: Hematocrit 31.8 % (30.3-42.9); Hemoglobin 9.9 gm/dl (10.1-14.3); Mean Corpuscular HGB Conc 31 % (30-34); Mean Corpuscular Hemoglobin 27 pg (28-32); Mean Corpuscular Volume 87 fl (79-97); Platelet Count 149 K/mm3 (140-440); Red Blood Count 3.66 M/mm3 (3.65-5.03); White Blood Count 14.5 K/mm3 (4.5-11.0)
[2017-02-05 06:27] LABS: Red Cell Distribution Width 20.9 % (13.2-15.2)
[2017-02-05 08:05] VITALS: BP 122/86
[2017-02-05] MEDS: CEPHULAC PO SCH (11:11)
== END 2017-02-05 12:50 | disposition hospice, inpatient (51) | DRG 871 ==
LOC: ED 14:49 → 3A 22:40
PROVIDERS: ADMIT Internal Medicine; ATTEND Internal Medicine
PROC: 0W9G3ZZ Drainage of Peritoneal Cavity, Percutaneous Approach (ICD-10-PCS; principal; 2017-01-31)
DX: A41.9 Sepsis, unspecified organism (principal); E43 Unspecified severe protein-calorie malnutrition; N17.0 Acute kidney failure with tubular necrosis; K65.9 Peritonitis, unspecified; E87.1 Hypo-osmolality and hyponatremia; Z68.1 Body mass index [BMI] 19.9 or less, adult; Q61.3 Polycystic kidney, unspecified; F01.50 Vascular dementia, unspecified severity, without behavioral disturbance, psychotic disturbance, mood disturbance, and anxiety; F17.210 Nicotine dependence, cigarettes, uncomplicated; E86.9 Volume depletion, unspecified; D63.1 Anemia in chronic kidney disease; K70.31 Alcoholic cirrhosis of liver with ascites; R16.0 Hepatomegaly, not elsewhere classified; F02.80 Dementia in other diseases classified elsewhere, unspecified severity, without behavioral disturbance, psychotic disturbance, mood disturbance, and anxiety; I67.2 Cerebral atherosclerosis; N18.3 Chronic kidney disease, stage 3 (moderate); K70.40 Alcoholic hepatic failure without coma; I12.9 Hypertensive chronic kidney disease with stage 1 through stage 4 chronic kidney disease, or unspecified chronic kidney disease; G30.9 Alzheimer's disease, unspecified; Z91.19 Patient's noncompliance with other medical treatment and regimen; Z79.899 Other long term (current) drug therapy; Z88.0 Allergy status to penicillin; Z93.3 Colostomy status
CPT/HCPCS: 36415; 49083; 70450; 71010; 74176; 74181; 76705; 80053; 80074; 81001; 82106; 82140; 82550; 82947; 82962; 83605; 83690; 83735; 83880; 84100; 84160; 85007; 85025; 85027; 85610; 85730; 86850; 86900; 86901; 87040; 87116; 88112; 88305; 89051; 93005; 93010; 96365; 96367; J0360; J1170; J1644; J1956; J3411; J3430; J7030; J7042